=== PATIENT | female | born 1970 | race Caucasian/White ===

== ENCOUNTER 2017-11-18 09:36 | Emergency (ER) | payer OTHER ==
[~2017-11-18] VITALS: Ht 160 cm; Wt 74.8 kg
[~2017-11-18 09:36] MED LIST: ALBU90OI INH; ASACOL HD800 MG PO; BENZ100A PO; BUDE200IP INH; BUDESONIDE EC3 MG PO; COLCHICINE0.6 MG PO; Cymbalta60 MG PO; DULO60 PO; FLUSAL1005 INH; FLUSAL2505 INH; GABA100 PO; HYDR1TAB94 PO; Inderal 20 mg T20 MG PO; Inderal40 MG; LEVSOD100 PO; LEVSOD88 PO; LOPE2C PO; Mucinex600 MG PO; Norco 5-325 Ta1 EACH PO; ONDA4 PO; PRAZ1 PO; PROC10 PO; PROP10 PO; TIOT18 INH; ZESTRIL40 MG PO; Zofran Odt4 MG SL; Zofran4 MG PO
[2017-11-18 10:27] LABS: BASOPHILS ABSOLUTE AUTO 0.01 K/mm3 (0.00-0.23); BASOPHILS PERCENT AUTO 0 % (0-2); EOSINOPHILS PERCENT AUTO 0 % (0-6); Hematocrit 37.6 % (33.0-51.0); Hemoglobin 12.2 g/dL (11.5-16.0); IMMATURE GRAN ABSOLUTE AUTO 0.01 K/mm3 (0.00-0.10); IMMATURE GRAN PERCENT AUTO 0 % (0-1); LYMPHOCYTES ABSOLUTE AUTO 1.52 K/mm3 (0.84-5.20); LYMPHOCYTES PERCENT AUTO 23 % (21-46); MONOCYTES ABSOLUTE AUTO 0.42 K/mm3 (0.16-1.47); MONOCYTES PERCENT AUTO 6 % (4-13); Mean Corpuscular HGB 28.4 pg (26.0-34.0); Mean Corpuscular HGB Conc 32.4 g/dL (31.5-36.5); Mean Corpuscular Volume 87 fL (80-100); Mean Platelet Volume 10.1 fL (9.1-12.4); NEUTROPHILS ABSOLUTE AUTO 4.81 K/mm3 (1.96-9.15); NEUTROPHILS PERCENT AUTO 71 % (41-73); Platelet Count 176 K/mm3 (150-400); RDW Coefficient Variation 14.6 % (11.7-14.2); RDW Standard Deviation 46.8 fL (35.1-46.3); White Blood Cell Count 6.77 K/mm3 (4.00-11.30)
[2017-11-18 10:46] LABS: Alanine Aminotransfer (ALT/SGP 19 U/L (12-78); Albumin, Blood 3.5 g/dL (3.4-5.0); Albumin/Globulin Ratio 0.9 (0.8-1.8); Alk Phos 81 U/L (50-136); Anion Gap 7 mmol/L (6-16); Aspartate Aminotrans (AST/SGOT 12 U/L (12-37); Bilirubin, Total 0.3 mg/dL (0.1-1.0); Blood Urea Nitrogen 15 mg/dL (8-24); Bun/Creatinine Ratio 15.1 (12.0-20.0); CO2, Blood 24 mmol/L (21-32); Chloride, Blood 108 mmol/L (98-108); Creatinine, Blood 0.99 mg/dL (0.40-1.00); Globulin, Blood 3.7 g/dL (2.2-4.0); Glomerular Filtration Rate >60 (60-); Glucose, Blood 97 mg/dL (70-99); Potassium, Blood 4.4 mmol/L (3.5-5.5); Sodium, Blood 139 mmol/L (136-145); Total Protein, Blood 7.2 g/dL (6.4-8.2)
== END 2017-11-18 11:32 | disposition home or self-care (01) ==
LOC: ER 09:36
PROVIDERS: Emergency Medicine
DX: K52.9 Noninfective gastroenteritis and colitis, unspecified (principal); Z91.013 Allergy to seafood; Z88.8 Allergy status to other drugs, medicaments and biological substances; Z79.899 Other long term (current) drug therapy; Z79.891 Long term (current) use of opiate analgesic; Z87.891 Personal history of nicotine dependence; Z85.841 Personal history of malignant neoplasm of brain
CPT/HCPCS: 36415; 80053; 83690; 85025; 96361; 96374; 99283; J2405; J7030

== ENCOUNTER → 2017-11-27 | Outpatient (CLI) | payer OTHER ==
[~2017-11-27] MED LIST changes: +BUDE10.22 INH; +CHOL10002; +CYAN500 PO; +MAGOXI400 PO; +Monodox100 MG PO; +ONDA4ODT MM; +Omeprazole20 M1 PO; +PANT40 PO; +SINGULAIR; +Ventolin/Prove6.7 GM INH
[2017-11-28 12:52] LABS: Adenovirus F 40/41 Not Detected (NOT DETECT); Astrovirus Not Detected (NOT DETECT); Campylobacter Sp Not Detected (NOT DETECT); Cryptosporidium Not Detected (NOT DETECT); Cyclospora Cayetanensis Not Detected (NOT DETECT); E. Coli O157 Not Detected (NOT DETECT); Entamoeba Histolytica Not Detected (NOT DETECT); Enteroaggregative E. coli-EAEC Not Detected (NOT DETECT); Enteropathogenic E. coli-EPEC Not Detected (NOT DETECT); Enterotoxigenic E. coli-ETEC Not Detected (NOT DETECT); Giardia Lamblia Not Detected (NOT DETECT); Norovirus GI/GII Not Detected (NOT DETECT); Plesiomonas Shigelloides Not Detected (NOT DETECT); Rotavirus A Not Detected (NOT DETECT); Salmonella Sp Not Detected (NOT DETECT); Sapovirus Not Detected (NOT DETECT); Shiga Toxin-prod E. coli-STEC Not Detected (NOT DETECT); Shigella/Enteroin E. coli-EIEC Not Detected (NOT DETECT); Vibrio Cholerae Not Detected (NOT DETECT); Vibrio Sp Not Detected (NOT DETECT); Yersinia Enterocolitica Not Detected (NOT DETECT)
== END | disposition home or self-care (01) ==
LOC: LAB 09:30 → LAB FUT 11-25 16:10
PROVIDERS: Internal Medicine Gastroenterology
DX: R19.7 Diarrhea, unspecified (principal); N18.2 Chronic kidney disease, stage 2 (mild); D63.1 Anemia in chronic kidney disease; N25.81 Secondary hyperparathyroidism of renal origin; E55.9 Vitamin D deficiency, unspecified; E78.00 Pure hypercholesterolemia, unspecified; R76.9 Abnormal immunological finding in serum, unspecified; D51.8 Other vitamin B12 deficiency anemias; D52.8 Other folate deficiency anemias; D50.9 Iron deficiency anemia, unspecified
CPT/HCPCS: 87507

== ENCOUNTER 2017-12-21 12:51 | Observation (INO) | payer OTHER ==
[~2017-12-21] VITALS: Ht 160 cm; Wt 74.8 kg
[~2017-12-21 12:51] MED LIST changes: -BUDE10.22 INH; -CHOL10002; -CYAN500 PO; -MAGOXI400 PO; -Monodox100 MG PO; -ONDA4ODT MM; -Omeprazole20 M1 PO; -PANT40 PO; -SINGULAIR; -Ventolin/Prove6.7 GM INH
[2017-12-21 14:21] LABS: BASOPHILS ABSOLUTE AUTO 0.03 K/mm3 (0.00-0.23); BASOPHILS PERCENT AUTO 0 % (0-2); EOSINOPHILS PERCENT AUTO 0 % (0-6); Hematocrit 45.1 % (33.0-51.0); Hemoglobin 14.6 g/dL (11.5-16.0); IMMATURE GRAN ABSOLUTE AUTO 0.03 K/mm3 (0.00-0.10); IMMATURE GRAN PERCENT AUTO 0 % (0-1); LYMPHOCYTES PERCENT AUTO 28 % (21-46); MONOCYTES ABSOLUTE AUTO 0.57 K/mm3 (0.16-1.47); MONOCYTES PERCENT AUTO 6 % (4-13); Mean Corpuscular HGB 28.1 pg (26.0-34.0); Mean Corpuscular HGB Conc 32.4 g/dL (31.5-36.5); Mean Corpuscular Volume 87 fL (80-100); Mean Platelet Volume 10.8 fL (9.1-12.4); NEUTROPHILS ABSOLUTE AUTO 6.57 K/mm3 (1.96-9.15); NEUTROPHILS PERCENT AUTO 66 % (41-73); Platelet Count 226 K/mm3 (150-400); RDW Coefficient Variation 15.2 % (11.7-14.2); RDW Standard Deviation 47.5 fL (35.1-46.3)
[2017-12-21 14:39] LABS: Albumin, Blood 4.4 g/dL (3.4-5.0); Bilirubin, Total 0.5 mg/dL (0.1-1.0); Bun/Creatinine Ratio 21.7 (12.0-20.0); Calcium, Blood 9.7 mg/dL (8.5-10.1); Creatinine, Blood 1.06 mg/dL (0.40-1.00); Globulin, Blood 4.4 g/dL (2.2-4.0); Potassium, Blood 4.4 mmol/L (3.5-5.5); Total Protein, Blood 8.8 g/dL (6.4-8.2)
[2017-12-21 14:55] LABS: Source, Urine Clean Catch
[2017-12-21 15:04] LABS: Appearance, Urine Clear (Clear); Bilirubin, Urine Neg (Neg); Blood, Urine Neg (Neg); Color, Urine Yellow (P-Yellow); Glucose Qualitative, Urine Neg (Neg); Ketones, Urine Neg (Neg); Leukocyte Esterase, Urine Neg (Neg); Nitrite, Urine Neg (Neg); Protein, Urine Neg (Neg); Urobilinogen, Urine NORM (Normal)
[2017-12-21] MEDS ORDERED: SINGULAIR (15:17)
[2017-12-23] MEDS ORDERED: HYDR1TAB94 PO (10:02)
== END 2017-12-23 12:59 | disposition home or self-care (01) ==
LOC: ER 12:51 → SURS 12:52 → MEDS 12:52 → SURS 16:54
PROVIDERS: Emergency Medicine; Surgery
PROC: BF03YZZ Plain Radiography of Gallbladder and Bile Ducts using Other Contrast (ICD-10-PCS; 2017-12-22)
PROC: 0FT44ZZ Resection of Gallbladder, Percutaneous Endoscopic Approach (ICD-10-PCS; principal; 2017-12-22 16:00)
DX: K80.12 Calculus of gallbladder with acute and chronic cholecystitis without obstruction (principal); I10 Essential (primary) hypertension; J44.9 Chronic obstructive pulmonary disease, unspecified; G89.29 Other chronic pain; F43.10 Post-traumatic stress disorder, unspecified; I47.1 Supraventricular tachycardia; K52.831 Collagenous colitis; M19.90 Unspecified osteoarthritis, unspecified site; M79.7 Fibromyalgia; G43.909 Migraine, unspecified, not intractable, without status migrainosus; E03.9 Hypothyroidism, unspecified; Z85.42 Personal history of malignant neoplasm of other parts of uterus; Z90.710 Acquired absence of both cervix and uterus; Z90.722 Acquired absence of ovaries, bilateral; Z90.89 Acquired absence of other organs; Z98.890 Other specified postprocedural states; Z87.19 Personal history of other diseases of the digestive system; Z79.899 Other long term (current) drug therapy; Z91.013 Allergy to seafood; Z88.8 Allergy status to other drugs, medicaments and biological substances; Z87.891 Personal history of nicotine dependence
CPT/HCPCS: 36415; 74300; 80053; 81003; 83690; 84443; 85025; 88304; 93005; 93010; 94640; 94760; 96361; 96365; 96366; 96375; 96376; 99285; C1729; G0378; J1100; J1956; J2250; J2370; J2405; J2710; J3010; J7120

== ENCOUNTER → 2018-02-26 | Outpatient (CLI) | payer OTHER ==
[~2018-02-26] MED LIST changes: +SINGULAIR
== END ==
LOC: LAB SHORT 06:30 → LAB 06:30
DX: R19.7 Diarrhea, unspecified (principal)
CPT/HCPCS: 83993

== ENCOUNTER 2018-05-03 10:54 | Emergency (ER) | payer OTHER ==
[~2018-05-03] VITALS: Ht 160 cm; Wt 79.4 kg
[2018-05-03] MEDS ORDERED: Monodox100 MG PO (12:15)
== END 2018-05-03 12:20 | disposition home or self-care (01) ==
LOC: ER 10:54
DX: L03.115 Cellulitis of right lower limb (principal); Z91.030 Bee allergy status; Z91.013 Allergy to seafood; Z88.8 Allergy status to other drugs, medicaments and biological substances; Z79.899 Other long term (current) drug therapy; Z85.841 Personal history of malignant neoplasm of brain
CPT/HCPCS: 90471; 90714; 99283

== ENCOUNTER 2018-06-11 11:59 | Emergency (ER) | payer OTHER ==
[~2018-06-11] VITALS: Ht 160 cm; Wt 77.1 kg
[~2018-06-11 11:59] MED LIST changes: +Monodox100 MG PO
== END 2018-06-11 13:00 | disposition left against medical advice (07) ==
LOC: ER 11:59
DX: Z53.21 Procedure and treatment not carried out due to patient leaving prior to being seen by health care provider (principal)

== ENCOUNTER 2018-06-17 10:31 | Inpatient (IN) | payer OTHER ==
[~2018-06-17] VITALS: Ht 160 cm; Wt 77.1 kg
[2018-06-17 11:09] LABS: BASOPHILS ABSOLUTE AUTO 0.01 K/mm3 (0.00-0.23); BASOPHILS PERCENT AUTO 0 % (0-2); EOSINOPHILS ABSOLUTE AUTO 0.02 K/mm3 (0.00-0.68); EOSINOPHILS PERCENT AUTO 0 % (0-6); Hematocrit 43.5 % (33.0-51.0); Hemoglobin 14.4 g/dL (11.5-16.0); IMMATURE GRAN ABSOLUTE AUTO 0.13 K/mm3 (0.00-0.10); IMMATURE GRAN PERCENT AUTO 1 % (0-1); LYMPHOCYTES ABSOLUTE AUTO 1.78 K/mm3 (0.84-5.20); LYMPHOCYTES PERCENT AUTO 16 % (21-46); MONOCYTES ABSOLUTE AUTO 0.66 K/mm3 (0.16-1.47); MONOCYTES PERCENT AUTO 6 % (4-13); Mean Corpuscular HGB 29.9 pg (26.0-34.0); Mean Corpuscular HGB Conc 33.1 g/dL (31.5-36.5); Mean Corpuscular Volume 90 fL (80-100); Mean Platelet Volume 10.3 fL (9.1-12.4); NEUTROPHILS ABSOLUTE AUTO 8.53 K/mm3 (1.96-9.15); NEUTROPHILS PERCENT AUTO 77 % (41-73); Platelet Count 244 K/mm3 (150-400); RDW Coefficient Variation 17.8 % (11.7-14.2); RDW Standard Deviation 58.4 fL (35.1-46.3); Red Blood Cell Count 4.82 M/mm3 (3.80-5.20); White Blood Cell Count 11.13 K/mm3 (4.00-11.30)
[2018-06-17] MEDS ORDERED: ONDA4ODT MM (11:21)
[2018-06-17] MEDS ORDERED: MAGOXI400 PO (11:21)
[2018-06-17] MEDS ORDERED: Ventolin/Prove6.7 GM INH (11:22)
[2018-06-17] MEDS ORDERED: PANT40 PO (11:22)
[2018-06-17] MEDS ORDERED: CHOL10002 (11:22)
[2018-06-17] MEDS ORDERED: CYAN500 PO (11:22)
[2018-06-17] MEDS ORDERED: Omeprazole20 M1 PO (11:23)
[2018-06-17 11:28] LABS: Base Excess Venous -7.6 mmol/L; Bicarbonate Venous 17.6 mmol/L (24.0-30.0); PCO2 Venous 43.8 mmHg (38-42); PO2 Venous 32.4 mmHg (38-42); pH Blood Venous 7.26 (7.34-7.37)
[2018-06-17 11:30] LABS: Magnesium, Blood 2.6 mg/dL (1.6-2.4)
[2018-06-17 11:35] LABS: Thyroid Stimulating Hormone 2.26 uIU/mL (0.360-4.800)
[2018-06-17 11:44] LABS: Adenovirus F 40/41 Not Detected (NOT DETECT); Astrovirus Not Detected (NOT DETECT); Campylobacter Sp Not Detected (NOT DETECT); Cryptosporidium Not Detected (NOT DETECT); Cyclospora Cayetanensis Not Detected (NOT DETECT); E. Coli O157 Not Detected (NOT DETECT); Entamoeba Histolytica Not Detected (NOT DETECT); Enteroaggregative E. coli-EAEC Not Detected (NOT DETECT); Enterotoxigenic E. coli-ETEC Not Detected (NOT DETECT); Giardia Lamblia Not Detected (NOT DETECT); Norovirus GI/GII Not Detected (NOT DETECT); Plesiomonas Shigelloides Not Detected (NOT DETECT); Rotavirus A Not Detected (NOT DETECT); Salmonella Sp Not Detected (NOT DETECT); Sapovirus Not Detected (NOT DETECT); Shiga Toxin-prod E. coli-STEC Not Detected (NOT DETECT); Shigella/Enteroin E. coli-EIEC Not Detected (NOT DETECT); Vibrio Cholerae Not Detected (NOT DETECT); Vibrio Sp Not Detected (NOT DETECT); Yersinia Enterocolitica Not Detected (NOT DETECT)
[2018-06-17 11:47] LABS: Albumin, Blood 4.1 g/dL (3.4-5.0); Albumin/Globulin Ratio 0.9 (0.8-1.8); Bilirubin, Total 0.5 mg/dL (0.1-1.0); Bun/Creatinine Ratio 6.8 (12.0-20.0); Calcium, Blood 8.4 mg/dL (8.5-10.1); Globulin, Blood 4.5 g/dL (2.2-4.0); Phosphorus, Blood 8.4 mg/dL (2.5-4.9); Potassium, Blood 3.7 mmol/L (3.5-5.5); Total Protein, Blood 8.6 g/dL (6.4-8.2)
[2018-06-17 12:24] LABS: U Amphetamine Screen Not Detected
[2018-06-17 12:25] LABS: U Barbituate Screen Not Detected; U Benzodiazapine Screen Not Detected; U Buprenorphine Screen Not Detected; U Cannabinoids Screen DETECTED; U Cocaine Screen Not Detected; U Methadone Screen Not Detected; U Methamphetamine Screen Not Detected; U Opiates Screen Not Detected; U Oxycodone Screen Not Detected; U Phencyclidine Screen Not Detected; U Propoxyphene Screen Not Detected
[2018-06-17 13:22] LABS: Enteropathogenic E. coli-EPEC Detected (NOT DETECT)
[2018-06-17 15:15] LABS: Source, Urine Clean Catch
[2018-06-17] MEDS ORDERED: BUDE10.22 INH (15:16)
[2018-06-17 15:18] LABS: Appearance, Urine Hazy (Clear); Blood, Urine 2+ (Neg); Color, Urine Yellow (P-Yellow); Glucose Qualitative, Urine Neg (Neg); Ketones, Urine Neg (Neg); Leukocyte Esterase, Urine 1+ (Neg); Nitrite, Urine Neg (Neg); Protein, Urine 3+ (Neg); Specific Gravity, Urine 1.015 (1.003-1.022); Urobilinogen, Urine NORM (Normal)
[2018-06-17 15:40] LABS: Bun/Creatinine Ratio 7.2 (12.0-20.0); Calcium, Blood 8.5 mg/dL (8.5-10.1); Creatinine, Blood 9.23 mg/dL (0.40-1.00); Potassium, Blood 3.7 mmol/L (3.5-5.5)
[2018-06-17 15:45] LABS: Bilirubin, Urine 1+ (Neg)
[2018-06-17 15:47] LABS: Mucus Mod (0-Heavy)
[2018-06-17 15:48] LABS: Bacteria Many /hpf; Squamous Epithelial Cells Mod /hpf (Few)
[2018-06-17 15:50] LABS: Yeast/Fungi Urine Few /hpf
[2018-06-18 05:32] LABS: Hematocrit 33.9 % (33.0-51.0); Hemoglobin 11.1 g/dL (11.5-16.0)
[2018-06-18 06:02] LABS: Magnesium, Blood 2.2 mg/dL (1.6-2.4)
[2018-06-18 06:06] LABS: Albumin, Blood 3.2 g/dL (3.4-5.0); Anion Gap 9 mmol/L (6-16); Blood Urea Nitrogen 55 mg/dL (8-24); Bun/Creatinine Ratio 10.1 (12.0-20.0); CO2, Blood 20 mmol/L (21-32); Calcium, Blood 8.1 mg/dL (8.5-10.1); Chloride, Blood 107 mmol/L (98-108); Creatinine, Blood 5.47 mg/dL (0.40-1.00); Glomerular Filtration Rate 9 (60-); Glucose, Blood 98 mg/dL (70-99); Potassium, Blood 3.4 mmol/L (3.5-5.5); Sodium, Blood 136 mmol/L (136-145)
[2018-06-18 06:07] LABS: Phosphorus, Blood 3.8 mg/dL (2.5-4.9)
[2018-06-18 09:28] LABS: Uric Acid, Blood 15.9 mg/dL (2.6-6.0)
[2018-06-19 04:53] LABS: BASOPHILS ABSOLUTE AUTO 0.02 K/mm3 (0.00-0.23); BASOPHILS PERCENT AUTO 0 % (0-2); EOSINOPHILS ABSOLUTE AUTO 0.01 K/mm3 (0.00-0.68); EOSINOPHILS PERCENT AUTO 0 % (0-6); Hematocrit 36.2 % (33.0-51.0); Hemoglobin 11.5 g/dL (11.5-16.0); IMMATURE GRAN ABSOLUTE AUTO 0.06 K/mm3 (0.00-0.10); IMMATURE GRAN PERCENT AUTO 1 % (0-1); LYMPHOCYTES PERCENT AUTO 33 % (21-46); MONOCYTES ABSOLUTE AUTO 0.42 K/mm3 (0.16-1.47); MONOCYTES PERCENT AUTO 6 % (4-13); Mean Corpuscular HGB 29.3 pg (26.0-34.0); Mean Corpuscular HGB Conc 31.8 g/dL (31.5-36.5); Mean Corpuscular Volume 92 fL (80-100); Mean Platelet Volume 10.1 fL (9.1-12.4); NEUTROPHILS PERCENT AUTO 60 % (41-73); Platelet Count 198 K/mm3 (150-400); RDW Coefficient Variation 17.7 % (11.7-14.2); Red Blood Cell Count 3.92 M/mm3 (3.80-5.20); White Blood Cell Count 6.71 K/mm3 (4.00-11.30)
[2018-06-19 05:12] LABS: Magnesium, Blood 1.9 mg/dL (1.6-2.4)
[2018-06-19 05:13] LABS: Alanine Aminotransfer (ALT/SGP 20 U/L (12-78); Albumin, Blood 3.3 g/dL (3.4-5.0); Albumin/Globulin Ratio 0.9 (0.8-1.8); Alk Phos 116 U/L (50-136); Anion Gap 8 mmol/L (6-16); Aspartate Aminotrans (AST/SGOT 17 U/L (12-37); Bilirubin, Total 0.2 mg/dL (0.1-1.0); Blood Urea Nitrogen 32 mg/dL (8-24); Bun/Creatinine Ratio 17.6 (12.0-20.0); CO2, Blood 22 mmol/L (21-32); Calcium, Blood 8.3 mg/dL (8.5-10.1); Chloride, Blood 114 mmol/L (98-108); Creatinine, Blood 1.82 mg/dL (0.40-1.00); Globulin, Blood 3.8 g/dL (2.2-4.0); Glomerular Filtration Rate 32 (60-); Glucose, Blood 88 mg/dL (70-99); Phosphorus, Blood 2.5 mg/dL (2.5-4.9); Potassium, Blood 3.8 mmol/L (3.5-5.5); Sodium, Blood 144 mmol/L (136-145); Total Protein, Blood 7.1 g/dL (6.4-8.2)
== END 2018-06-19 12:15 | disposition home or self-care (01) | DRG 683 ==
LOC: ER 10:31 → MEDS 11:56 → ENPENDDIS 06-19 11:30 → MEDS 06-19 12:15
PROVIDERS: Emergency Medicine; Internal Medicine; Internal Medicine Nephrology
PROC: 3E0234Z Introduction of Serum, Toxoid and Vaccine into Muscle, Percutaneous Approach (ICD-10-PCS; principal; 2018-06-17)
DX: N17.9 Acute kidney failure, unspecified (principal); E87.2 Acidosis; E03.9 Hypothyroidism, unspecified; K52.831 Collagenous colitis; I12.9 Hypertensive chronic kidney disease with stage 1 through stage 4 chronic kidney disease, or unspecified chronic kidney disease; N18.2 Chronic kidney disease, stage 2 (mild); E86.9 Volume depletion, unspecified; E87.6 Hypokalemia; D63.1 Anemia in chronic kidney disease; E88.09 Other disorders of plasma-protein metabolism, not elsewhere classified; J44.9 Chronic obstructive pulmonary disease, unspecified; Z23 Encounter for immunization; Z91.038 Other insect allergy status; Z91.013 Allergy to seafood; Z91.048 Other nonmedicinal substance allergy status; Z87.891 Personal history of nicotine dependence; Z79.899 Other long term (current) drug therapy
CPT/HCPCS: 36415; 36416; 71045; 76770; 80048; 80053; 80069; 81001; 82550; 82803; 83735; 84100; 84443; 84550; 85014; 85018; 85025; 87086; 87507; 90686; 93005; 93010; 94640; 94760; 96360; 97161; 99285-25; G8978; G8979; G8980; J2405; J7030; J7120

== ENCOUNTER 2018-11-25 07:17 | Inpatient (IN) | payer OTHER ==
[~2018-11-25] VITALS: Ht 160 cm; Wt 85.1 kg
[~2018-11-25 07:17] MED LIST changes: +BUDE10.22 INH; +CHOL10002; +CYAN500 PO; +MAGOXI400 PO; +ONDA4ODT MM; +Omeprazole20 M1 PO; +PANT40 PO; +Ventolin/Prove6.7 GM INH
[2018-11-25 08:17] LABS: BASOPHILS ABSOLUTE AUTO 0.08 K/mm3 (0.00-0.23); BASOPHILS PERCENT AUTO 0 % (0-2); EOSINOPHILS ABSOLUTE AUTO 0.02 K/mm3 (0.00-0.68); EOSINOPHILS PERCENT AUTO 0 % (0-6); Hematocrit 48.1 % (33.0-51.0); Hemoglobin 15.2 g/dL (11.5-16.0); IMMATURE GRAN ABSOLUTE AUTO 0.31 K/mm3 (0.00-0.10); IMMATURE GRAN PERCENT AUTO 1 % (0-1); LYMPHOCYTES PERCENT AUTO 16 % (21-46); MONOCYTES ABSOLUTE AUTO 1.15 K/mm3 (0.16-1.47); MONOCYTES PERCENT AUTO 5 % (4-13); Mean Corpuscular HGB 30.5 pg (26.0-34.0); Mean Corpuscular HGB Conc 31.6 g/dL (31.5-36.5); Mean Corpuscular Volume 96 fL (80-100); Mean Platelet Volume 10.1 fL (9.1-12.4); NEUTROPHILS ABSOLUTE AUTO 18.38 K/mm3 (1.96-9.15); NEUTROPHILS PERCENT AUTO 78 % (41-73); Platelet Count 286 K/mm3 (150-400); RDW Coefficient Variation 16.5 % (11.7-14.2); RDW Standard Deviation 58.4 fL (35.1-46.3); Red Blood Cell Count 4.99 M/mm3 (3.80-5.20); White Blood Cell Count 23.74 K/mm3 (4.00-11.30)
[2018-11-25] MEDS ORDERED: BENZ100A PO (08:17)
[2018-11-25 08:30] LABS: Alanine Aminotransfer (ALT/SGP 25 U/L (12-78); Albumin, Blood 4.1 g/dL (3.4-5.0); Albumin/Globulin Ratio 1.1 (0.8-1.8); Alk Phos 104 U/L (50-136); Anion Gap 10 mmol/L (6-16); Aspartate Aminotrans (AST/SGOT 12 U/L (12-37); Bilirubin, Total 0.3 mg/dL (0.1-1.0); Blood Urea Nitrogen 25 mg/dL (8-24); Bun/Creatinine Ratio 21.6 (12.0-20.0); CO2, Blood 23 mmol/L (21-32); Calcium, Blood 8.9 mg/dL (8.5-10.1); Chloride, Blood 109 mmol/L (98-108); Creatinine, Blood 1.16 mg/dL (0.40-1.00); Ethanol (Alcohol), Blood, Med <3 mg/dL; Globulin, Blood 3.9 g/dL (2.2-4.0); Glomerular Filtration Rate 53 (60-); Glucose, Blood 115 mg/dL (70-99); Potassium, Blood 3.7 mmol/L (3.5-5.5); Sodium, Blood 142 mmol/L (136-145)
[2018-11-25 10:04] LABS: Adenovirus F 40/41 Not Detected (NOT DETECT); Astrovirus Not Detected (NOT DETECT); Campylobacter Sp Not Detected (NOT DETECT); Cryptosporidium Not Detected (NOT DETECT); Cyclospora Cayetanensis Not Detected (NOT DETECT); E. Coli O157 Not Detected (NOT DETECT); Entamoeba Histolytica Not Detected (NOT DETECT); Enteroaggregative E. coli-EAEC Not Detected (NOT DETECT); Enteropathogenic E. coli-EPEC Not Detected (NOT DETECT); Enterotoxigenic E. coli-ETEC Not Detected (NOT DETECT); Giardia Lamblia Not Detected (NOT DETECT); Norovirus GI/GII Not Detected (NOT DETECT); Plesiomonas Shigelloides Not Detected (NOT DETECT); Rotavirus A Not Detected (NOT DETECT); Salmonella Sp Not Detected (NOT DETECT); Sapovirus Not Detected (NOT DETECT); Shiga Toxin-prod E. coli-STEC Not Detected (NOT DETECT); Shigella/Enteroin E. coli-EIEC Not Detected (NOT DETECT); Vibrio Cholerae Not Detected (NOT DETECT); Vibrio Sp Not Detected (NOT DETECT); Yersinia Enterocolitica Not Detected (NOT DETECT)
[2018-11-25 10:11] LABS: International Normalized Ratio 0.94
[2018-11-25] MEDS ORDERED: Cymbalta20 MG PO (12:35)
[2018-11-25] MEDS ORDERED: LISI20 PO (12:37)
--- NOTE | 2018-11-25 15:03 | NUR ---
PT ADMITTED. PT IN STABLE CONDITION WITH VSS. PT ORIENTED TO ROOM. CALL LIGHT IN REACH.
[2018-11-25 16:45] LABS: U Amphetamine Screen Not Detected; U Barbituate Screen Not Detected; U Benzodiazapine Screen Not Detected; U Cocaine Screen Not Detected; U Methamphetamine Screen Not Detected
[2018-11-25 16:46] LABS: U Buprenorphine Screen Not Detected; U Cannabinoids Screen DETECTED; U Methadone Screen Not Detected; U Opiates Screen DETECTED; U Oxycodone Screen Not Detected; U Phencyclidine Screen Not Detected; U Propoxyphene Screen Not Detected
--- NOTE | 2018-11-25 16:52 | NUR ---
SHIFT SUMMARY NO CHANGES IN ASSESSMENT AT THIS TIME. VSS. PT RESTING IN BED AT THIS TIME. PT IND IN ROOM. PT STATES SHE HAS STRESS INCONTINENCE BOTH BOWEL & BLADDER. PT RECIEVING D5W/NS KCL 20 MEQ AT 100ML/HR. WILL CONTINUE TO MONITOR UNTIL TURNOVER IS COMPLETE.
--- NOTE | 2018-11-25 21:56 | NUR ---
ASSUMED CARE OF PT D/T PRIOR RN HAS NO COMPUTER ACCESS.
--- NOTE | 2018-11-26 03:33 | NUR ---
SHIFT SUMMARY: PT RESTED WELL T/O SHIFT. NO COMPLAINTS OF PAIN OR NAUSEA. IV FLUIDS INFUSING. NO ACUTE CHANGES. WILL CONTINUE TO MONITOR AND PROVIDE CARE UNTIL SHIFT REPORT.
[2018-11-26 05:13] LABS: Hematocrit 37.6 % (33.0-51.0); Hemoglobin 11.8 g/dL (11.5-16.0); Mean Corpuscular HGB 30.3 pg (26.0-34.0); Mean Corpuscular HGB Conc 31.4 g/dL (31.5-36.5); Mean Corpuscular Volume 96 fL (80-100); Mean Platelet Volume 9.7 fL (9.1-12.4); Platelet Count 185 K/mm3 (150-400); RDW Coefficient Variation 16.3 % (11.7-14.2); RDW Standard Deviation 58.2 fL (35.1-46.3); White Blood Cell Count 7.78 K/mm3 (4.00-11.30)
[2018-11-26 05:47] LABS: Anion Gap 8 mmol/L (6-16); Blood Urea Nitrogen 14 mg/dL (8-24); Bun/Creatinine Ratio 13.9 (12.0-20.0); CO2, Blood 23 mmol/L (21-32); Calcium, Blood 8.1 mg/dL (8.5-10.1); Chloride, Blood 109 mmol/L (98-108); Creatinine, Blood 1.01 mg/dL (0.40-1.00); Glomerular Filtration Rate >60 (60-); Glucose, Blood 103 mg/dL (70-99); Potassium, Blood 3.9 mmol/L (3.5-5.5); Sodium, Blood 140 mmol/L (136-145)
--- NOTE | 2018-11-26 16:45 | NUR ---
SHIFT SUMMARY NO CHANGES IN ASSESSMENT AT THIS TIME. VSS. PT IND IN ROOM & TO BATHROOM. PT TOLERATED CLEAR LIQUID THIS MORNING & ADVANCED TO FULL LIQUID FOR THIS AFTERNOON. PT HAS DENIED NEED FOR PAIN MEDICATION TODAY. PT A&OX4. PT LIKELY TO DC TOMORROW PER DR. CAMARILLO. PT AWARE OF PLAN FOR STAYING TONIGHT. WILL CONTINUE TO MONITOR UNTIL TURNOVER IS COMPLETE.
--- NOTE | 2018-11-27 07:33 | NUR ---
0030: spoke to Dr Wily Ragsdale rounding on patients. who said that he would be changing the patients diet to Regular diet and for me to get her something to eat. I brought the patient a sandwich, and a glass of milk.
[2018-11-27] MEDS ORDERED: TYLENOL325 MG PO (09:27)
[2018-11-27] MEDS ORDERED: METR500 PO (09:27)
[2018-11-27] MEDS ORDERED: CULTURELLE1 EACH PO (09:28)
[2018-11-27] MEDS ORDERED: LEVO750 PO (09:28)
--- NOTE | 2018-11-27 13:37 | NUR ---
DISCHARGE NOTE PT DISCHARGED TO HOME. PT LEFT ROOM WITH STEADY GAIT AND SENIOR SOFTWARE ARCHITECT ESCORT. PT EDUCATED ON NEW MEDICATIONS AND INSTRUCTED TO FOLLOW UP WITH PCP AND TO WELDING LEAD BURNER MEDS FROM PHARMACY. IV DC'D AND BELONGINGS RETURNED.
== END 2018-11-27 12:53 | disposition home or self-care (01) | DRG 872 ==
LOC: ER 07:17 → MEDS 12:39 → ENPENDDIS 11-27 09:19 → MEDS 11-27 12:53
PROVIDERS: Physician Assistant; ADMIT Hospitalist
DX: A41.9 Sepsis, unspecified organism (principal); C72.9 Malignant neoplasm of central nervous system, unspecified; K52.831 Collagenous colitis; E86.0 Dehydration; J44.9 Chronic obstructive pulmonary disease, unspecified; F43.10 Post-traumatic stress disorder, unspecified; Z85.42 Personal history of malignant neoplasm of other parts of uterus; Z85.850 Personal history of malignant neoplasm of thyroid; I12.9 Hypertensive chronic kidney disease with stage 1 through stage 4 chronic kidney disease, or unspecified chronic kidney disease; N18.3 Chronic kidney disease, stage 3 (moderate); E89.0 Postprocedural hypothyroidism; F32.9 Major depressive disorder, single episode, unspecified; F17.210 Nicotine dependence, cigarettes, uncomplicated; K21.9 Gastro-esophageal reflux disease without esophagitis
CPT/HCPCS: 36415; 70450; 74176; 80048; 80053; 82947; 83605; 83690; 85025; 85027; 85610; 87040; 87507; 90686; 93005; 93010; 94640; 94760; 96361; 96365; 96366; 96375; 99285-25; G0480; J0744; J1170; J1650; J1956; J2405; J2550; J7030; J7050

== ENCOUNTER → 2019-02-09 | Outpatient (CLI) | payer OTHER ==
[~2019-02-09] MED LIST changes: +CULTURELLE1 EACH PO; +Cymbalta20 MG PO; +LEVO750 PO; +LISI20 PO; +METR500 PO; +TYLENOL325 MG PO
[2019-02-09 20:36] LABS: Albumin, Blood 3.9 g/dL (3.4-5.0); Anion Gap 9 mmol/L (6-16); Blood Urea Nitrogen 13 mg/dL (8-24); Bun/Creatinine Ratio 14.6 (12.0-20.0); CO2, Blood 26 mmol/L (21-32); Calcium, Blood 8.9 mg/dL (8.5-10.1); Chloride, Blood 105 mmol/L (98-108); Creatinine, Blood 0.89 mg/dL (0.40-1.00); Glomerular Filtration Rate >60 (60-); Glucose, Blood 108 mg/dL (70-99); Phosphorus, Blood 3.7 mg/dL (2.5-4.9); Potassium, Blood 4.2 mmol/L (3.5-5.5); Sodium, Blood 140 mmol/L (136-145)
== END | disposition home or self-care (01) ==
LOC: LAB 19:47 → LAB SHORT 19:47
PROVIDERS: Internal Medicine Nephrology
DX: N18.2 Chronic kidney disease, stage 2 (mild) (principal); D63.1 Anemia in chronic kidney disease
CPT/HCPCS: 80069

== ENCOUNTER → 2019-03-22 | Outpatient (CLI) | payer OTHER ==
[2019-03-22 19:05] LABS: Adenovirus F 40/41 Not Detected (NOT DETECT); Astrovirus Not Detected (NOT DETECT); Campylobacter Sp Not Detected (NOT DETECT); Cryptosporidium Not Detected (NOT DETECT); Cyclospora Cayetanensis Not Detected (NOT DETECT); E. Coli O157 Not Detected (NOT DETECT); Entamoeba Histolytica Not Detected (NOT DETECT); Enteroaggregative E. coli-EAEC Not Detected (NOT DETECT); Enteropathogenic E. coli-EPEC Not Detected (NOT DETECT); Enterotoxigenic E. coli-ETEC Not Detected (NOT DETECT); Giardia Lamblia Not Detected (NOT DETECT); Norovirus GI/GII Not Detected (NOT DETECT); Plesiomonas Shigelloides Not Detected (NOT DETECT); Rotavirus A Not Detected (NOT DETECT); Salmonella Sp Not Detected (NOT DETECT); Sapovirus Not Detected (NOT DETECT); Shiga Toxin-prod E. coli-STEC Not Detected (NOT DETECT); Shigella/Enteroin E. coli-EIEC Not Detected (NOT DETECT); Vibrio Cholerae Not Detected (NOT DETECT); Vibrio Sp Not Detected (NOT DETECT); Yersinia Enterocolitica Not Detected (NOT DETECT)
== END | disposition home or self-care (01) ==
LOC: LAB 13:51 → LAB SHORT 13:51 → LAB FUT 03-16 10:55
PROVIDERS: Internal Medicine Hematology & Oncology
DX: R19.7 Diarrhea, unspecified (principal)
CPT/HCPCS: 87324; 87507

== ENCOUNTER → 2019-04-19 | Outpatient (CLI) | payer OTHER ==
[2019-04-20 14:15] LABS: Adenovirus F 40/41 Not Detected (NOT DETECT); Astrovirus Not Detected (NOT DETECT); Campylobacter Sp Not Detected (NOT DETECT); Cryptosporidium Not Detected (NOT DETECT); Cyclospora Cayetanensis Not Detected (NOT DETECT); E. Coli O157 Not Detected (NOT DETECT); Entamoeba Histolytica Not Detected (NOT DETECT); Enteroaggregative E. coli-EAEC Not Detected (NOT DETECT); Enteropathogenic E. coli-EPEC Not Detected (NOT DETECT); Enterotoxigenic E. coli-ETEC Not Detected (NOT DETECT); Giardia Lamblia Not Detected (NOT DETECT); Norovirus GI/GII Not Detected (NOT DETECT); Plesiomonas Shigelloides Not Detected (NOT DETECT); Rotavirus A Not Detected (NOT DETECT); Salmonella Sp Not Detected (NOT DETECT); Sapovirus Not Detected (NOT DETECT); Shiga Toxin-prod E. coli-STEC Not Detected (NOT DETECT); Shigella/Enteroin E. coli-EIEC Not Detected (NOT DETECT); Vibrio Cholerae Not Detected (NOT DETECT); Vibrio Sp Not Detected (NOT DETECT); Yersinia Enterocolitica Not Detected (NOT DETECT)
== END | disposition home or self-care (01) ==
LOC: LAB 08:43 → LAB SHORT 08:43 → LAB FUT 04-19 10:20
PROVIDERS: Internal Medicine Gastroenterology
DX: D50.0 Iron deficiency anemia secondary to blood loss (chronic) (principal); E87.8 Other disorders of electrolyte and fluid balance, not elsewhere classified; R19.7 Diarrhea, unspecified
CPT/HCPCS: 0097U

== ENCOUNTER → 2020-01-07 | Outpatient (CLI) | payer OTHER ==
[2020-01-07 17:59] LABS: Adenovirus F 40/41 Not Detected (NOT DETECT); Astrovirus Not Detected (NOT DETECT); Campylobacter Sp Not Detected (NOT DETECT); Cryptosporidium Not Detected (NOT DETECT); Cyclospora Cayetanensis Not Detected (NOT DETECT); E. Coli O157 Not Detected (NOT DETECT); Entamoeba Histolytica Not Detected (NOT DETECT); Enteroaggregative E. coli-EAEC Not Detected (NOT DETECT); Enteropathogenic E. coli-EPEC Not Detected (NOT DETECT); Enterotoxigenic E. coli-ETEC Not Detected (NOT DETECT); Giardia Lamblia Not Detected (NOT DETECT); Norovirus GI/GII Not Detected (NOT DETECT); Plesiomonas Shigelloides Not Detected (NOT DETECT); Rotavirus A Not Detected (NOT DETECT); Salmonella Sp Not Detected (NOT DETECT); Sapovirus Not Detected (NOT DETECT); Shiga Toxin-prod E. coli-STEC Not Detected (NOT DETECT); Shigella/Enteroin E. coli-EIEC Not Detected (NOT DETECT); Vibrio Cholerae Not Detected (NOT DETECT); Vibrio Sp Not Detected (NOT DETECT); Yersinia Enterocolitica Not Detected (NOT DETECT)
== END | disposition home or self-care (01) ==
LOC: LAB SHORT 12:29 → OLS 12:29 → LAB FUT 01-05 08:00
PROVIDERS: Internal Medicine Gastroenterology
DX: D50.0 Iron deficiency anemia secondary to blood loss (chronic) (principal); R19.7 Diarrhea, unspecified
CPT/HCPCS: 0097U

== ENCOUNTER → 2020-03-15 | Outpatient (CLI) | payer OTHER ==
[2020-03-15 19:46] LABS: BASOPHILS ABSOLUTE AUTO 0.03 K/mm3 (0.00-0.23); BASOPHILS PERCENT AUTO 0 % (0-2); EOSINOPHILS ABSOLUTE AUTO 0.01 K/mm3 (0.00-0.68); EOSINOPHILS PERCENT AUTO 0 % (0-6); IMMATURE GRAN ABSOLUTE AUTO 0.09 K/mm3 (0.00-0.10); IMMATURE GRAN PERCENT AUTO 1 % (0-1); LYMPHOCYTES ABSOLUTE AUTO 2.47 K/mm3 (0.84-5.20); LYMPHOCYTES PERCENT AUTO 24 % (21-46); MONOCYTES ABSOLUTE AUTO 0.59 K/mm3 (0.16-1.47); MONOCYTES PERCENT AUTO 6 % (4-13); Mean Corpuscular HGB 33.1 pg (26.0-34.0); Mean Corpuscular HGB Conc 33.3 g/dL (31.5-36.5); Mean Corpuscular Volume 99 fL (80-100); Mean Platelet Volume 10.5 fL (9.1-12.4); NEUTROPHILS ABSOLUTE AUTO 7.14 K/mm3 (1.96-9.15); NEUTROPHILS PERCENT AUTO 69 % (41-73); Platelet Count 262 K/mm3 (150-400); RDW Coefficient Variation 17.6 % (11.7-14.2); RDW Standard Deviation 64.5 fL (35.1-46.3); Red Blood Cell Count 3.93 M/mm3 (3.80-5.20); White Blood Cell Count 10.33 K/mm3 (4.00-11.30)
[2020-03-15 20:02] LABS: C-REACTIVE PROTEIN, EXT RANGE 1.14 mg/dL (0.000-0.300)
[2020-03-15 20:08] LABS: Albumin, Blood 4.1 g/dL (3.4-5.0); Bilirubin, Total 0.5 mg/dL (0.1-1.0); Bun/Creatinine Ratio 14.2 (12.0-20.0); Calcium, Blood 9.2 mg/dL (8.5-10.1); Creatinine, Blood 1.06 mg/dL (0.40-1.00); Globulin, Blood 4.3 g/dL (2.2-4.0); Potassium, Blood 4.2 mmol/L (3.5-5.5); Total Protein, Blood 8.4 g/dL (6.4-8.2)
== END | disposition home or self-care (01) ==
LOC: LAB 19:29 → LAB SHORT 19:29
PROVIDERS: Nurse Practitioner Family
DX: R10.12 Left upper quadrant pain (principal)
CPT/HCPCS: 80053; 83690; 85025; 85651; 86140

== ENCOUNTER → 2021-01-03 | Outpatient (CLI) | payer OTHER | END | disposition home or self-care (01) | LOC: LAB SHORT 15:16 | DX: R31.9 Hematuria, unspecified (principal) | CPT/HCPCS: 87086 ==

== ENCOUNTER 2023-02-09 10:40 | Emergency (ER) | payer MEDICARE, OTHER ==
[~2023-02-09] VITALS: Ht 162.6 cm; Wt 86.2 kg
[2023-02-09 10:53] VITALS: BP 127/73
== END 2023-02-09 13:25 | disposition home or self-care (01) ==
LOC: ER 10:40
DX: K62.3 Rectal prolapse (principal); I10 Essential (primary) hypertension; J44.9 Chronic obstructive pulmonary disease, unspecified; E11.9 Type 2 diabetes mellitus without complications; Z88.8 Allergy status to other drugs, medicaments and biological substances; Z91.030 Bee allergy status; Z91.013 Allergy to seafood; Z79.899 Other long term (current) drug therapy
CPT/HCPCS: 99283

== ENCOUNTER 2023-02-23 12:51 | Emergency (ER) | payer MEDICARE, OTHER ==
[~2023-02-23] VITALS: Ht 162.6 cm; Wt 81.7 kg
[2023-02-23 14:22] LABS: Hemoglobin 8.7 g/dL (11.5-16.0); Mean Corpuscular HGB 28.8 pg (26.0-34.0); Mean Corpuscular HGB Conc 32.2 g/dL (31.5-36.5); Mean Corpuscular Volume 89 fL (80-100); Mean Platelet Volume 9.7 fL (9.1-12.4); Platelet Count 405 K/mm3 (150-400); RDW Coefficient Variation 16.1 % (11.7-14.2); RDW Standard Deviation 53.2 fL (35.1-46.3); Red Blood Cell Count 3.02 M/mm3 (3.80-5.20); White Blood Cell Count 13.04 K/mm3 (4.00-11.30)
[2023-02-23 14:40] LABS: Albumin, Blood 3.6 g/dL (3.4-5.0); Bilirubin, Total 0.3 mg/dL (0.1-1.0); Bun/Creatinine Ratio 16.6 (12.0-20.0); Creatinine, Blood 1.45 mg/dL (0.40-1.00); Globulin, Blood 3.5 g/dL (2.2-4.0); Potassium, Blood 3.9 mmol/L (3.5-5.5); Total Protein, Blood 7.1 g/dL (6.4-8.2)
[2023-02-23 14:49] LABS: BASOPHILS PERCENT MAN 0 % (0-2); EOSINOPHILS ABSOLUTE MAN 0.39 K/mm3 (0.00-0.68); EOSINOPHILS PERCENT MAN 3 % (0-6); LYMPHOCYTES % ATYPICAL MANUAL 2 % (0-0); LYMPHOCYTES PERCENT MAN 31 % (21-46); MONOCYTES ABSOLUTE MAN 0.52 K/mm3 (0.16-1.47); MONOCYTES PERCENT MAN 4 % (4-13); NEUTROPHILS ABSOLUTE MAN 7.82 K/mm3 (1.96-9.15); SEG NEUTROPHILS PERCENT MAN 60 % (41-73); TOTAL CELLS COUNTED 100
[2023-02-23] MEDS ORDERED: ALLOPURINOL100 M1 PO (16:03)
[2023-02-23] MEDS ORDERED: PRAM.5 (16:04)
[2023-02-23] MEDS ORDERED: LIPITOR80 MG (16:04)
[2023-02-23] MEDS ORDERED: METFORMIN HCL500 M2 (16:05)
[2023-02-23] MEDS ORDERED: MONT10T PO (16:06)
[2023-02-23 17:06] LABS: International Normalized Ratio 1.01; Prothrombin Time Results 10.6 Sec (9.7-11.5)
[2023-02-23 18:45] VITALS: BP 127/75
[2023-02-23 19:09] LABS: Source, Urine Clean Catch
[2023-02-23 19:11] LABS: Appearance, Urine Hazy (Clear); Bilirubin, Urine Neg (Neg); Blood, Urine 5+ (Neg); Color, Urine Yellow (P-Yellow); Glucose Qualitative, Urine Neg (Neg); Ketones, Urine Neg (Neg); Leukocyte Esterase, Urine 1+ (Neg); Nitrite, Urine Neg (Neg); Protein, Urine 2+ (Neg); Specific Gravity, Urine 1.005 (1.003-1.022); Urobilinogen, Urine NORM (Normal)
[2023-02-23 19:22] LABS: Bacteria Mod /hpf; Squamous Epithelial Cells Rare /hpf (Few)
[2023-02-23 19:23] LABS: Red Blood Cells, Urine 50-100 /hpf (0-2)
== END 2023-02-23 21:32 | disposition left against medical advice (07) ==
LOC: ER 12:51
PROVIDERS: Student in an Organized Health Care Education/Training Program
DX: K92.2 Gastrointestinal hemorrhage, unspecified (principal); I95.9 Hypotension, unspecified; R55 Syncope and collapse; K64.4 Residual hemorrhoidal skin tags; Z53.29 Procedure and treatment not carried out because of patient's decision for other reasons; J44.9 Chronic obstructive pulmonary disease, unspecified; I12.9 Hypertensive chronic kidney disease with stage 1 through stage 4 chronic kidney disease, or unspecified chronic kidney disease; E11.22 Type 2 diabetes mellitus with diabetic chronic kidney disease; N18.9 Chronic kidney disease, unspecified; Z85.841 Personal history of malignant neoplasm of brain; Z91.030 Bee allergy status; Z91.013 Allergy to seafood; Z91.048 Other nonmedicinal substance allergy status; Z79.51 Long term (current) use of inhaled steroids; Z79.899 Other long term (current) drug therapy
CPT/HCPCS: 71045; 74177; 80053; 81001; 83605; 84484; 85025; 85610; 85730; 86850; 86900; 86901; 93005; 93010; J7030; Q9967

== ENCOUNTER 2023-10-04 15:56 | Emergency (ER) | payer MEDICARE, OTHER ==
[~2023-10-04] VITALS: Ht 162.6 cm; Wt 127.0 kg
[~2023-10-04 15:56] MED LIST changes: +ALLOPURINOL100 M1 PO; +LIPITOR80 MG; +METFORMIN HCL500 M2; +MONT10T PO; +PRAM.5
[2023-10-04 16:22] VITALS: BP 127/66
[2023-10-04 17:01] LABS: BASOPHILS ABSOLUTE AUTO 0.03 K/mm3 (0.00-0.23); BASOPHILS PERCENT AUTO 0 % (0-2); EOSINOPHILS ABSOLUTE AUTO 0.09 K/mm3 (0.00-0.68); EOSINOPHILS PERCENT AUTO 1 % (0-6); Hematocrit 19.6 % (33.0-51.0); IMMATURE GRAN ABSOLUTE AUTO 0.11 K/mm3 (0.00-0.10); IMMATURE GRAN PERCENT AUTO 1 % (0-1); LYMPHOCYTES ABSOLUTE AUTO 0.72 K/mm3 (0.84-5.20); LYMPHOCYTES PERCENT AUTO 7 % (21-46); MONOCYTES ABSOLUTE AUTO 0.71 K/mm3 (0.16-1.47); MONOCYTES PERCENT AUTO 6 % (4-13); Mean Corpuscular HGB 19.7 pg (26.0-34.0); Mean Corpuscular HGB Conc 28.6 g/dL (31.5-36.5); Mean Corpuscular Volume 69 fL (80-100); Mean Platelet Volume 9.8 fL (9.1-12.4); NEUTROPHILS PERCENT AUTO 85 % (41-73); NRBC ABSOLUTE 0.07 K/mm3 (0.00-0.02); NRBC Auto 0.6 /100 WBC (0.0-0.2); Platelet Count 323 K/mm3 (150-400); RDW Standard Deviation 53.7 fL (35.1-46.3); Red Blood Cell Count 2.84 M/mm3 (3.80-5.20); White Blood Cell Count 11.06 K/mm3 (4.00-11.30)
[2023-10-04 17:05] LABS: Hemoglobin 5.6 g/dL (11.5-16.0)
[2023-10-04 17:11] LABS: Influenza A, PCR NEGATIVE (NEGATIVE); Influenza B, PCR NEGATIVE (NEGATIVE); Resp Syncytial Virus, PCR NEGATIVE (NEGATIVE)
[2023-10-04 17:24] LABS: Albumin, Blood 3.5 g/dL (3.4-5.0); Albumin/Globulin Ratio 1.1 (0.8-1.8); Bilirubin, Total 0.4 mg/dL (0.1-1.0); Bun/Creatinine Ratio 13.9 (12.0-20.0); Calcium, Blood 8.9 mg/dL (8.5-10.1); Creatinine, Blood 1.58 mg/dL (0.40-1.00); Globulin, Blood 3.3 g/dL (2.2-4.0); Total Protein, Blood 6.8 g/dL (6.4-8.2)
[2023-10-04 17:30] LABS: SARS-Cov-2 (COVID-19) PCR, MMC POSITIVE (NEGATIVE)
== END 2023-10-04 18:47 | disposition left against medical advice (07) ==
LOC: ER 15:56
PROVIDERS: Physician Assistant
DX: R50.9 Fever, unspecified (principal); Z53.29 Procedure and treatment not carried out because of patient's decision for other reasons; H92.03 Otalgia, bilateral; R53.1 Weakness
CPT/HCPCS: 0241U; 80053; 85025; 99283

== ENCOUNTER 2023-10-26 11:06 | Emergency (ER) | payer MEDICARE, OTHER ==
[~2023-10-26] VITALS: Ht 162.6 cm; Wt 81.7 kg
[2023-10-26 11:41] VITALS: BP 124/86
[2023-10-26] MEDS ORDERED: NEURONTIN300 MG PO (12:53)
[2023-10-26] MEDS ORDERED: FLUTICASONE-SA1 EAC8 (12:54)
[2023-10-26] MEDS ORDERED: PAXLOVID 150-11 EAC1 (12:54)
[2023-10-26] MEDS ORDERED: HYDCHL25 (12:54)
[2023-10-26] MEDS ORDERED: FENO54 PO (12:55)
[2023-10-26] MEDS ORDERED: INCRUSE ELLIPTA (12:55)
[2023-10-26] MEDS ORDERED: PANTOPRAZOLE SO40 M2 PO (12:56)
[2023-10-26] MEDS ORDERED: POTA8 PO (12:56)
[2023-10-26] MEDS ORDERED: EUTHYROX100 MC1 PO (12:56)
[2023-10-26] MEDS ORDERED: FUROSEMIDE40 MG PO (12:56)
[2023-10-26 13:14] LABS: BASOPHILS ABSOLUTE AUTO 0.05 K/mm3 (0.00-0.23); BASOPHILS PERCENT AUTO 0 % (0-2); EOSINOPHILS ABSOLUTE AUTO 0.14 K/mm3 (0.00-0.68); EOSINOPHILS PERCENT AUTO 1 % (0-6); Hematocrit 29.3 % (33.0-51.0); Hemoglobin 8.2 g/dL (11.5-16.0); IMMATURE GRAN ABSOLUTE AUTO 0.05 K/mm3 (0.00-0.10); IMMATURE GRAN PERCENT AUTO 0 % (0-1); LYMPHOCYTES ABSOLUTE AUTO 2.14 K/mm3 (0.84-5.20); LYMPHOCYTES PERCENT AUTO 17 % (21-46); MONOCYTES PERCENT AUTO 6 % (4-13); Mean Corpuscular HGB 18.9 pg (26.0-34.0); Mean Corpuscular Volume 67 fL (80-100); Mean Platelet Volume 9.1 fL (9.1-12.4); NEUTROPHILS ABSOLUTE AUTO 9.21 K/mm3 (1.96-9.15); NEUTROPHILS PERCENT AUTO 75 % (41-73); Platelet Count 555 K/mm3 (150-400); RDW Coefficient Variation 21.7 % (11.7-14.2); RDW Standard Deviation 51.4 fL (35.1-46.3); Red Blood Cell Count 4.35 M/mm3 (3.80-5.20); White Blood Cell Count 12.29 K/mm3 (4.00-11.30)
[2023-10-26 13:18] LABS: Albumin, Blood 4.1 g/dL (3.4-5.0); Bilirubin, Total 0.5 mg/dL (0.1-1.0); Bun/Creatinine Ratio 16.7 (12.0-20.0); Calcium, Blood 10.2 mg/dL (8.5-10.1); Creatinine, Blood 1.62 mg/dL (0.40-1.00); Globulin, Blood 4.1 g/dL (2.2-4.0); Potassium, Blood 3.8 mmol/L (3.5-5.5); Total Protein, Blood 8.2 g/dL (6.4-8.2)
[2023-10-26 13:24] LABS: Source, Urine Voided
[2023-10-26 13:40] LABS: Appearance, Urine Clear (Clear); Bilirubin, Urine Neg (Neg); Blood, Urine Neg (Neg); Color, Urine Yellow (P-Yellow); Glucose Qualitative, Urine Neg (Neg); Ketones, Urine Neg (Neg); Leukocyte Esterase, Urine Neg (Neg); Nitrite, Urine Neg (Neg); Protein, Urine 2+ (Neg); Urobilinogen, Urine NORM (Normal); pH, Urine 6.5 (5.0-8.0)
[2023-10-26 14:05] LABS: Influenza A, PCR NEGATIVE (NEGATIVE); Influenza B, PCR NEGATIVE (NEGATIVE); Resp Syncytial Virus, PCR NEGATIVE (NEGATIVE); SARS-Cov-2 (COVID-19) PCR, MMC NEGATIVE (NEGATIVE)
[2023-10-26 14:06] LABS: Bacteria Few /hpf; Hyaline Casts 0-2 /lpf (0-2); Red Blood Cells, Urine 0-2 /hpf (0-2); Squamous Epithelial Cells Mod /hpf (Few); White Blood Cells, Urine 0-2 /hpf (0-5)
[2023-10-26] MEDS ORDERED: LOPE2C PO (14:43)
[2023-10-26] MEDS ORDERED: ONDA4ODT MM (14:43)
== END 2023-10-26 15:00 | disposition home or self-care (01) ==
LOC: ER 11:06
PROVIDERS: Emergency Medicine
DX: B34.9 Viral infection, unspecified (principal); I10 Essential (primary) hypertension; J44.9 Chronic obstructive pulmonary disease, unspecified; F43.10 Post-traumatic stress disorder, unspecified; I47.10 Supraventricular tachycardia, unspecified; E11.9 Type 2 diabetes mellitus without complications; Z79.51 Long term (current) use of inhaled steroids; Z79.899 Other long term (current) drug therapy; Z88.8 Allergy status to other drugs, medicaments and biological substances; Z91.013 Allergy to seafood; Z91.030 Bee allergy status
CPT/HCPCS: 0241U; 80053; 81001; 85025; 96361; 96374; 99284-25; J2405; J7030

== ENCOUNTER 2023-11-05 09:30 | Inpatient (IN) | payer MEDICARE, OTHER ==
[2023-11-05] VITALS (26 sets, daily range): BP systolic 75–122; BP diastolic 39–75
[~2023-11-05] VITALS: Ht 162.6 cm; Wt 81.1 kg
[~2023-11-05 09:30] MED LIST changes: +EUTHYROX100 MC1 PO; +FENO54 PO; +FLUTICASONE-SA1 EAC8; +FUROSEMIDE40 MG PO; +HYDCHL25 PO; +INCRUSE ELLIPTA; -LIPITOR80 MG; +LIPITOR80 MG PO; -METFORMIN HCL500 M2; +METFORMIN HCL500 M2 PO; +NEURONTIN300 MG PO; +PANTOPRAZOLE SO40 M2 PO; +PAXLOVID 150-11 EAC1; +POTA8 PO
[2023-11-05 11:03] LABS: BASOPHILS ABSOLUTE AUTO 0.04 K/mm3 (0.00-0.23); BASOPHILS PERCENT AUTO 0 % (0-2); EOSINOPHILS ABSOLUTE AUTO 0.22 K/mm3 (0.00-0.68); EOSINOPHILS PERCENT AUTO 2 % (0-6); Hematocrit 20.5 % (33.0-51.0); IMMATURE GRAN ABSOLUTE AUTO 0.04 K/mm3 (0.00-0.10); IMMATURE GRAN PERCENT AUTO 0 % (0-1); LYMPHOCYTES ABSOLUTE AUTO 2.39 K/mm3 (0.84-5.20); LYMPHOCYTES PERCENT AUTO 25 % (21-46); MONOCYTES ABSOLUTE AUTO 0.49 K/mm3 (0.16-1.47); MONOCYTES PERCENT AUTO 5 % (4-13); Mean Corpuscular HGB 19.6 pg (26.0-34.0); Mean Corpuscular HGB Conc 29.3 g/dL (31.5-36.5); Mean Corpuscular Volume 67 fL (80-100); Mean Platelet Volume 9.9 fL (9.1-12.4); NEUTROPHILS ABSOLUTE AUTO 6.43 K/mm3 (1.96-9.15); NEUTROPHILS PERCENT AUTO 67 % (41-73); Platelet Count 316 K/mm3 (150-400); RDW Coefficient Variation 21.1 % (11.7-14.2); RDW Standard Deviation 50.2 fL (35.1-46.3); Red Blood Cell Count 3.06 M/mm3 (3.80-5.20); White Blood Cell Count 9.61 K/mm3 (4.00-11.30)
[2023-11-05 11:25] LABS: Albumin, Blood 3.9 g/dL (3.4-5.0); Albumin/Globulin Ratio 1.3 (0.8-1.8); Bilirubin, Total 0.4 mg/dL (0.1-1.0); Bun/Creatinine Ratio 15.3 (12.0-20.0); Calcium, Blood 9.7 mg/dL (8.5-10.1); Creatinine, Blood 4.43 mg/dL (0.40-1.00); Globulin, Blood 3.1 g/dL (2.2-4.0); Potassium, Blood 4.4 mmol/L (3.5-5.5)
[2023-11-05 11:27] LABS: International Normalized Ratio 0.93; Prothrombin Time Results 9.8 Sec (9.7-11.5)
[2023-11-05] MEDS ORDERED: NS 1,000 ML IV SCH (12:55)
[2023-11-05] MEDS ORDERED: Acetaminophen 325 MG TABLET PO PRN (13:50)
[2023-11-05] MEDS ORDERED: FLU VACC QS2023-24(6MOS UP)/PF 60 MCG/0.5 ML SYRINGE IM PRN (13:50)
[2023-11-05] MEDS ORDERED: Ondansetron HCl 2 MG / ML 2ML Vial IV PRN (13:50)
[2023-11-05 14:23] LABS: IMMATURE RETIC FRACTION 35.9 % (2.3-16.0); RETIC HGB EQUIVALENT 22.7 pg (28.20-36.60); RETICULOCYTE ABSOLUTE 0.0586 M/mm3 (0.0200-0.1100); RETICULOCYTE COUNT PERCENT 1.91 % (0.50-2.50)
[2023-11-05] MEDS ORDERED: NS 1,000 ML IV ONE (14:40)
[2023-11-05 15:00] LABS: Percent Saturation 4.2 % (15.0-50.0)
[2023-11-05] MEDS ORDERED: Nicotine 14 MG PATCH TOP SCH (15:00)
[2023-11-05] MEDS ORDERED: NS 250 ML IV PRN (15:10)
[2023-11-05] MEDS ORDERED: Insulin Human Lispro 100 Units/ML 3ML Syringe SC SCH (16:30)
[2023-11-05] MEDS ORDERED: PROM25 PO (16:58)
[2023-11-05] MEDS ORDERED: PROP10 PO (17:00)
--- NOTE | 2023-11-05 18:39 | NUR ---
PATIENT DIRECT ADMIT TO PCU 18. ALERT AND ORIENTED X4. ABLE TO GIVE COMPLETE HISTORY. PERRLA, DENIES NUMBNESS/TINGLING. MOVING ALL EXTREMITIES WNL. USING WALKER AT BASELINE. TELE SHOWING SR WITH HR 80'S. SBP 90-110'S. DENIES CHEST PAIN/PRESSURE/PALPITATIONS. PPP. EDEMA NOTED TO BLE. 1ST UNIT OF PRBC INFUSED AND 2ND BAG INFUSING AT THIS TIME. ON ROOM AIR SATING ABOVE 95%. LUNGS SOUNDING COARSE THROUGHOUT WITH OCCASIONAL EXPIRATORY WHEEZE. AUDIBLE SNORE WHEN SLEEPING. DENIES USING OXYGEN AND BIPAP/CPAP AT BASELINE. BOWEL TONES PRESENT. PATIENT COMPLAINS OF CHRONIC LEFT SIDED ABDOMINAL PAIN DUE TO HISTORY OF ABDOMINAL MASS AND CKD. RENAL ULTRASOUND COMPLETED IN PCU. DR. LIRA CONSULTED. EATING RENAL DIET. PATIENT STATES IT IS NORMAL FOR HER TO HAVE BLOODY STOOLS, HISTORY OF RECTAL PROLAPSE THAT PATIENT STATES SHE IS ABLE TO PUSH BACK IN HERSELF. DR. BIRD AT BEDSIDE AND RECTAL EXAM COMPLETED WITH THIS RN AND STUDENT RN PRESENT. NO BOWEL MOVEMENT YET, STOOL SAMPLE NEEDED. URINE SAMPLE SENT TO LAB. SKIN OVERALL SCATTERED BRUISING AND SCABS. NO PRESSURE ULCERS PRESENT. CALL LIGHT IN REACH. DENIES NEEDS AT THIS TIME.
--- NOTE | 2023-11-05 20:30 | NUR ---
PHYSICIAN COMMUNICATION CONTACTED DR LIRA TO NOTIFY HIM THAT SINCE THIS RN CAME ON SHIFT THE PATIENT'S BLOOD PRESSURE HAD BEEN HYPOTENSIVE WITH MAP RUNNING BETWEEN 55-63 AND THAT THE PATIENT WAS CURRENTLY BEING INFUSED WITH HER SECOND UNIT OF BLOOD. DR LIRA ORDERED 5 MG MIDODRINE TID HOLD FOR SBP >130, ALBUMIN 12.5 IV DAILY, BUMEX 2MG IV DAILY, ARANESP SUBCUTANEOUS EVERY OTHER WEEK HOLD FOR HEMATOCRIT >33, 1000 ML FLUID RESTRICTION, 24 HR URINE PROTEIN, AND RENAL PANEL, H+H, AND MAGNESIUM FOR THE MORNING. WILL CONTINUE TO MONITOR.
[2023-11-05] MEDS ORDERED: Midodrine 5 MG Tab PO SCH (21:00)
[2023-11-05] MEDS ORDERED: Docusate Sodium 100 MG Cap PO SCH (21:00)
[2023-11-05] MEDS ORDERED: Albumin Human 50 ML IV SCH (21:15)
[2023-11-05] MEDS ORDERED: Darbepoetin Alfa In Albumn Sol 40 MCG/0.4 ML SC SCH (22:00)
[2023-11-05 22:55] LABS: Hematocrit 23.4 % (33.0-51.0); Hemoglobin 7.3 g/dL (11.5-16.0)
[2023-11-06] VITALS (14 sets, daily range): BP systolic 75–118; BP diastolic 39–63
--- NOTE | 2023-11-06 00:42 | NUR ---
PHYSICIAN COMMUNICATION CONTACTED DR LIRA TO NOTIFY HIM THAT THE PATIENT'S BLOOD PRESSURE IS TRENDING DOWN AND THE MOST RECENT PRESSURE IS 79/42 WITH MAP OF 55. INFORMED HIM THAT THE PATIENT HAS FINISHED WITH THE BLOOD AND HAS RECEIVED HER FIRST DOSES OF MIDODRINE AND ALBUMIN. DR LIRA SAID TO CONTINUE TO MONITOR THE PATIENT SO LONG SHE IS NOT SYMPTOMATIC. NO NEW ORDERS GIVEN.
[2023-11-06 04:15] LABS: BASOPHILS ABSOLUTE AUTO 0.03 K/mm3 (0.00-0.23); BASOPHILS PERCENT AUTO 0 % (0-2); EOSINOPHILS ABSOLUTE AUTO 0.18 K/mm3 (0.00-0.68); EOSINOPHILS PERCENT AUTO 2 % (0-6); Hematocrit 23.7 % (33.0-51.0); Hemoglobin 7.2 g/dL (11.5-16.0); IMMATURE GRAN ABSOLUTE AUTO 0.03 K/mm3 (0.00-0.10); IMMATURE GRAN PERCENT AUTO 0 % (0-1); LYMPHOCYTES ABSOLUTE AUTO 3.45 K/mm3 (0.84-5.20); LYMPHOCYTES PERCENT AUTO 36 % (21-46); MONOCYTES ABSOLUTE AUTO 0.65 K/mm3 (0.16-1.47); MONOCYTES PERCENT AUTO 7 % (4-13); Mean Corpuscular HGB 21.6 pg (26.0-34.0); Mean Corpuscular HGB Conc 30.4 g/dL (31.5-36.5); Mean Corpuscular Volume 71 fL (80-100); Mean Platelet Volume 9.9 fL (9.1-12.4); NEUTROPHILS ABSOLUTE AUTO 5.16 K/mm3 (1.96-9.15); NEUTROPHILS PERCENT AUTO 54 % (41-73); Platelet Count 270 K/mm3 (150-400); RDW Coefficient Variation 22.5 % (11.7-14.2); RDW Standard Deviation 57.4 fL (35.1-46.3); Red Blood Cell Count 3.34 M/mm3 (3.80-5.20)
[2023-11-06 04:26] LABS: Albumin, Blood 3.3 g/dL (3.4-5.0); Albumin/Globulin Ratio 1.3 (0.8-1.8); Bilirubin, Total 0.4 mg/dL (0.1-1.0); Bun/Creatinine Ratio 19.7 (12.0-20.0); Calcium, Blood 8.5 mg/dL (8.5-10.1); Creatinine, Blood 3.2 mg/dL (0.40-1.00); Globulin, Blood 2.6 g/dL (2.2-4.0); Magnesium, Blood 1.6 mg/dL (1.6-2.4); Potassium, Blood 4.8 mmol/L (3.5-5.5); Total Protein, Blood 5.9 g/dL (6.4-8.2)
--- NOTE | 2023-11-06 06:26 | NUR ---
SHIFT SUMMARY PATIENT ALERT AND ORIENTED X4. STAND BY ASSIST WITH FWW. HAD NO COMPLAINTS OF PAIN OR SHORTNESS OF BREATH. PATIENT ON ROOM AIR, SPO2 >90%. BLOOD PRESSURE CONTINUES TO BY HYPOTENSIVE, HOWEVER PATIENT DENIES ANY DIZZINESS OR LIGHT HEADEDNESS, EVEN WHEN SITTING OR STANDING. PATIENT DOES NOT APPEAR TO BE UNSTEADY ON HER FEET WHEN WALKING EITHER. PATIENT IS SINUS RHYTHM ON TELE WITH NO EVENTS. WILL CONTINUE TO MONITOR. CALL LIGHT WITHIN REACH.
[2023-11-06] MEDS ORDERED: Bumetanide 0.25 MG/ML 10ML Vial IV SCH (09:00)
[2023-11-06] MEDS ORDERED: Albumin Human 50 ML IV SCH (09:00)
[2023-11-06 11:48] LABS: Stool Occult Blood Guaiac 1 Neg (Neg)
--- NOTE | 2023-11-06 18:03 | NUR ---
SHIFT SUMMARY UPON CARE ASSUMPTION, PT ASLEEP, WAKING TO VERBAL STIMULI. PT A&O X4. BP LOW & CBG FOUND TO BE 42. PT REPORTING "I JUST FEEL TIRED." PT ABLE TO EAT & DRINK APPLE JUICE & SNACK W/ CBG INCREASE TO 106 UPON RECHECK. PT BP IMPROVE W/ SCHEDULED PO MIDODRINE PER EMAR. VSS. SPO2 > 92% ON RA. MONITOR SHOWING SR, HR 70s-90s. PT 1 PERSON ASSIST TO BATHROOM. PT W/ DIARRHEA THIS SHIFT. STOOL SAMPLE SENT PER ORDER. PT REPORTING DAILY DIARRHEA SINCE 2014. 24 HR URINE RESTARTED THIS SHIFT D/T STOOL CONTAMINATION IN URINE COLLECTION. PT REPORTS FEELING BETTER THIS SHIFT.
[2023-11-07 00:09] VITALS: BP 106/62
[2023-11-07 04:10] VITALS: BP 125/66
--- NOTE | 2023-11-07 05:45 | NUR ---
SHIFT SUMMARY PT A&O X4, PLEASANT AND COOPERATIVE WITH CARE. PT REPORTS FEELING "VERY TIRED" BUT IS EASILY AWAKENED, FOLLOWS COMMANDS AND MOVES ALL EXTREMITIES. VSS; SBP 100 - 120, SR WITH RATE IN 80'S, AFEBRILE, SP02 >94% ON RA. PT DENIES CP/PRESSURE, SOB, DIZZINESS, N/V. PT DENIES BM THIS SHIFT, REPORTS "HAVE DECREASED A LITTLE BIT". PT VOIDING IN RESTROOM INDEPENDENTLY WITH FWW. 24 HOUR URINE COLLECTION STILL IN PLACE AND BEING COLLECTED. NO ACUTE EVENTS OVERNIGHT. F.R IN PLACE. HS CBG 117. PT CURRENTLY RESTING, CALL LIGHT IN REACH. WILL UPDATE ONCOMING RN
[2023-11-07] MEDS ORDERED: Pantoprazole Sodium 20 MG Tab PO SCH (07:15)
--- NOTE | 2023-11-07 07:31 | NUR ---
UPDATE PT AWAKENED AROUND O600 REQUESTING TO "GO HOME". PT STATES SHE IS "READY TO GO HOME AND DOES NOT WANT TO BE HERE ANYMORE". PT REPORTS SHE IS IN "A LOT OF PAIN" AND "DOESN'T WANT TO STAY ANY LONGER". THIS RN DISCUSSED AND EDUCATED PT ON RISKS AND BENEFITS OF LEAVING AMA. PT VERBALIZED UNDERSTANDING AND STILL REQUESTED TO LEAVE. AMA PAPERWORK COMPLETE WITH PT. DR. LIRA IN ROOM ROUNDING AND ADVISING PT NOT TO LEAVE, DISCUSSED WITH PT RISKS AND BENEFITS. PT UNDERSTANDS AND STILL WOULD LIKE TO LEAVE. HOSPITALIST AWARE AND CURRICULUM DEVELOPMENT SPECIALIST NOTIFIED
[2023-11-07] MEDS ORDERED: PANT40 PO (07:32)
[2023-11-07] MEDS ORDERED: BUME2 PO (07:32)
[2023-11-07 08:00] LABS: Albumin, Blood 3.9 g/dL (3.4-5.0); Anion Gap 1 mmol/L (6-16); Blood Urea Nitrogen 34 mg/dL (8-24); Bun/Creatinine Ratio 22.7 (12.0-20.0); CO2, Blood 28 mmol/L (21-32); Calcium, Blood 9.6 mg/dL (8.5-10.1); Chloride, Blood 109 mmol/L (98-108); Glomerular Filtration Rate 42 (60-); Glucose, Blood 112 mg/dL (70-99); Magnesium, Blood 1.8 mg/dL (1.6-2.4); Phosphorus, Blood 2.5 mg/dL (2.5-4.9); Sodium, Blood 138 mmol/L (136-145)
--- NOTE | 2023-11-07 09:09 | NUR ---
AMA PT VERY PLEASANT, A&O X4. PT LEFT AMA @ APPROX 0800 & REPORTS WILL CONTINUE TO FOLLOW WITH DR PANKAJ MARCUM ALEGRE & TAKE HER MEDICATIONS PRESCRIBED. PIV REMOVED. PT LEFT W/ FAMILY/FRIEND.
[2023-11-08] MEDS ORDERED: Bumetanide 1 MG Tab PO SCH (09:00)
== END 2023-11-07 08:37 | disposition left against medical advice (07) | DRG 683 ==
LOC: ER 09:30 → PCU 11:40
PROVIDERS: Internal Medicine Nephrology; Student in an Organized Health Care Education/Training Program; ADMIT Student in an Organized Health Care Education/Training Program
PROC: 30233N1 Transfusion of Nonautologous Red Blood Cells into Peripheral Vein, Percutaneous Approach (ICD-10-PCS; principal; 2023-11-05)
DX: N17.9 Acute kidney failure, unspecified (principal); E87.1 Hypo-osmolality and hyponatremia; K92.1 Melena; D50.0 Iron deficiency anemia secondary to blood loss (chronic); I95.9 Hypotension, unspecified; K62.3 Rectal prolapse; I12.9 Hypertensive chronic kidney disease with stage 1 through stage 4 chronic kidney disease, or unspecified chronic kidney disease; E11.22 Type 2 diabetes mellitus with diabetic chronic kidney disease; N18.32 Chronic kidney disease, stage 3b; J44.9 Chronic obstructive pulmonary disease, unspecified; E89.0 Postprocedural hypothyroidism; G25.81 Restless legs syndrome; M79.7 Fibromyalgia; G89.29 Other chronic pain; E11.42 Type 2 diabetes mellitus with diabetic polyneuropathy; F17.210 Nicotine dependence, cigarettes, uncomplicated; N25.81 Secondary hyperparathyroidism of renal origin; E87.70 Fluid overload, unspecified; R60.0 Localized edema; E83.39 Other disorders of phosphorus metabolism; E88.09 Other disorders of plasma-protein metabolism, not elsewhere classified; Z87.19 Personal history of other diseases of the digestive system; Z79.84 Long term (current) use of oral hypoglycemic drugs; Z85.841 Personal history of malignant neoplasm of brain; Z11.52 Encounter for screening for COVID-19
CPT/HCPCS: 36415; 74150; 76770; 80053; 80069; 82272; 82570; 82728; 82947; 83036; 83540; 83550; 83735; 84100; 84300; 84443; 84540; 85014; 85018; 85025; 85045; 85610; 85730; 86850; 86900; 86901; 86923; 93005; 93010; 94762; 99284-25; A9270; J0881; J7050; P9016; P9047

== ENCOUNTER 2024-01-18 12:05 | Day surgery (SDC) | payer MEDICARE, OTHER ==
[~2024-01-18 12:05] MED LIST changes: +BUME2 PO; +PROM25 PO
[2024-01-18] MEDS ORDERED: Bumetanide 0.25 MG/ML 10ML Vial IV SCH (12:15)
[2024-01-18] MEDS ORDERED: NS 250 ML IV SCH (12:15)
[2024-01-18 14:52] VITALS: BP 89/48
[2024-01-18 15:18] VITALS: BP 104/54
[2024-01-18 16:49] VITALS: BP 107/50
[2024-01-22] MEDS ORDERED: MONT10T (13:50)
[2024-01-22] MEDS ORDERED: Pulmicort Fle180 MCG (13:50)
[2024-01-22] MEDS ORDERED: PRAM.125 PO (13:51)
[2024-01-22] MEDS ORDERED: HYDCHL25 (13:51)
[2024-01-22] MEDS ORDERED: FURO20 PO (13:52)
== END 2024-01-18 16:50 | disposition home or self-care (01) ==
LOC: ATC 12:05
DX: I12.9 Hypertensive chronic kidney disease with stage 1 through stage 4 chronic kidney disease, or unspecified chronic kidney disease (principal); N18.32 Chronic kidney disease, stage 3b; D63.1 Anemia in chronic kidney disease; E11.22 Type 2 diabetes mellitus with diabetic chronic kidney disease; E11.21 Type 2 diabetes mellitus with diabetic nephropathy; N25.81 Secondary hyperparathyroidism of renal origin; E86.9 Volume depletion, unspecified; R80.9 Proteinuria, unspecified; E55.9 Vitamin D deficiency, unspecified; Z79.899 Other long term (current) drug therapy; Z91.013 Allergy to seafood
CPT/HCPCS: 36415; 36430; 86850; 86900; 86901; 86923; 96374; J7050; P9016

== ENCOUNTER 2024-04-19 14:44 | Inpatient (IN) | payer MEDICARE, OTHER ==
[~2024-04-19] VITALS: Ht 160 cm; Wt 78.5 kg
[~2024-04-19 14:44] MED LIST changes: +FURO20 PO; +HYDCHL25; +MONT10T; +PRAM.125 PO; +Pulmicort Fle180 MCG
[2024-04-19] MEDS ORDERED: Lactated Ringer's 1,000 ML IV SCH ×2 (15:10→18:05)
[2024-04-19 15:12] LABS: BASOPHILS ABSOLUTE AUTO 0.04 K/mm3 (0.00-0.23); BASOPHILS PERCENT AUTO 0 % (0-2); EOSINOPHILS ABSOLUTE AUTO 0.28 K/mm3 (0.00-0.68); EOSINOPHILS PERCENT AUTO 3 % (0-6); Hematocrit 25.4 % (33.0-51.0); Hemoglobin 7.4 g/dL (11.5-16.0); IMMATURE GRAN ABSOLUTE AUTO 0.03 K/mm3 (0.00-0.10); IMMATURE GRAN PERCENT AUTO 0 % (0-1); LYMPHOCYTES ABSOLUTE AUTO 2.74 K/mm3 (0.84-5.20); LYMPHOCYTES PERCENT AUTO 30 % (21-46); MONOCYTES ABSOLUTE AUTO 0.56 K/mm3 (0.16-1.47); MONOCYTES PERCENT AUTO 6 % (4-13); Mean Corpuscular HGB 21.8 pg (26.0-34.0); Mean Corpuscular HGB Conc 29.1 g/dL (31.5-36.5); Mean Corpuscular Volume 75 fL (80-100); Mean Platelet Volume 10.6 fL (9.1-12.4); NEUTROPHILS ABSOLUTE AUTO 5.48 K/mm3 (1.96-9.15); NEUTROPHILS PERCENT AUTO 60 % (41-73); Platelet Count 258 K/mm3 (150-400); RDW Coefficient Variation 21.9 % (11.7-14.2); RDW Standard Deviation 59.4 fL (35.1-46.3); Red Blood Cell Count 3.39 M/mm3 (3.80-5.20); White Blood Cell Count 9.13 K/mm3 (4.00-11.30)
[2024-04-19 15:28] LABS: Albumin, Blood 3.8 g/dL (3.4-5.0); Albumin/Globulin Ratio 1.4 (0.8-1.8); Bilirubin, Total 0.4 mg/dL (0.1-1.0); Calcium, Blood 9.1 mg/dL (8.5-10.1); Creatinine, Blood 5.26 mg/dL (0.40-1.00); Globulin, Blood 2.8 g/dL (2.2-4.0); Potassium, Blood 3.4 mmol/L (3.5-5.5); Total Protein, Blood 6.6 g/dL (6.4-8.2)
[2024-04-19] MEDS ORDERED: Albuterol 2.5 MG/3 ML VIAL INH PRN (18:05)
[2024-04-19] MEDS ORDERED: Acetaminophen 325 MG TABLET PO PRN (18:05)
[2024-04-19] MEDS ORDERED: Ondansetron HCl 2 MG / ML 2ML Vial IV PRN (18:05)
[2024-04-19] MEDS ORDERED: Loperamide HCl 2 MG Cap PO PRN (18:10)
[2024-04-19] MEDS ORDERED: Tiotropium Bromide 2.5 MCG/ACT MIST INHAL (10 ACT/4 GM) INH SCH (18:10)
[2024-04-19] MEDS ORDERED: Mometasone/Formoterol MDI 200/5 mcg 13 GM INH SCH (18:20)
[2024-04-19 18:35] LABS: Magnesium, Blood 1.6 mg/dL (1.6-2.4)
[2024-04-19 18:37] LABS: Prolactin 6.8 ng/mL (2.74-19.64); Thyroid Stimulating Hormone 19.2 uIU/mL (0.360-4.800)
[2024-04-19 20:19] LABS: PCO2 Venous 33.8 mmHg (38-42); pH Blood Venous 7.46 (7.34-7.37)
[2024-04-19 20:20] LABS: Base Excess Venous -0.2 mmol/L; Bicarbonate Venous 24.5 mmol/L (24.0-30.0)
[2024-04-19] MEDS ORDERED: Gabapentin 300 MG Cap PO SCH (21:00)
[2024-04-19 21:22] VITALS: BP 119/81
[2024-04-20 03:13] VITALS: BP 94/61
[2024-04-20 05:45] LABS: Hemoglobin 7.6 g/dL (11.5-16.0); Mean Corpuscular HGB 21.9 pg (26.0-34.0); Mean Corpuscular HGB Conc 29.2 g/dL (31.5-36.5); Mean Corpuscular Volume 75 fL (80-100); Platelet Count 271 K/mm3 (150-400); RDW Standard Deviation 59.7 fL (35.1-46.3); Red Blood Cell Count 3.47 M/mm3 (3.80-5.20); White Blood Cell Count 8.11 K/mm3 (4.00-11.30)
[2024-04-20] MEDS ORDERED: Pantoprazole Sodium 40 MG Tab PO SCH (06:00)
--- NOTE | 2024-04-20 06:18 | NUR ---
PROCESS VALIDATION ENGINEER SUMMARY PT ADMITTED FROM IN ER IN NO ACUTE DISTRESS. ONLY ISSUE OVERNIGHT IS PT IS STILL HAVING DIARRHEA AND DOESNT TAKE THE IMMODIUM BECAUSE SHE SAYS IT NEVER WORKS. NO SEIZURE ACTIVITY NOTED. SEIZURE PRECAUTIONS IN PLACE. SEIZURE PADS ON THE BED, SUCTION IN PLACE. IVF RUNNING ALL NIGHT AT 150/HR.
[2024-04-20 06:59] LABS: Bun/Creatinine Ratio 15.8 (12.0-20.0); Calcium, Blood 8.8 mg/dL (8.5-10.1); Creatinine, Blood 3.74 mg/dL (0.40-1.00); Magnesium, Blood 1.3 mg/dL (1.6-2.4); Potassium, Blood 3.2 mmol/L (3.5-5.5)
[2024-04-20] MEDS ORDERED: Mag Sulfate 1 GM/D5% 100ML 100 ML IV STA (07:43)
[2024-04-20] MEDS ORDERED: Potassium Chloride 40 MEQ in NS 250 ML IV ONE (07:45)
[2024-04-20 07:52] VITALS: BP 107/60
[2024-04-20] MEDS ORDERED: NS 250 ML IV PRN (07:55)
[2024-04-20] MEDS ORDERED: Heparin Sodium,Porcine 5,000 UNIT/0.5 ML SDV SC SCH (09:00)
[2024-04-20 14:55] VITALS: BP 115/60
--- NOTE | 2024-04-20 17:35 | NUR ---
SUMMARY PT SITTING UP IN BED WATCHING TV AND VISITING WITH FAMILY, PT HAS BEEN INDEPENDENT IN THE ROOM, PLEASANT AND COOPERATIVE WITH CARE T/O THE DAY, DENIES PAIN OR NAUSEA, VSS, WILL CONT TO MONITOR
[2024-04-20 20:21] VITALS: BP 123/64
[2024-04-21 04:22] VITALS: BP 123/65
--- NOTE | 2024-04-21 04:27 | NUR ---
SHIFT SUMMARY A/P TERRY. NO ACUTE CHANGES OVERNIGHT. VSS; TELE - NSR @ 80. NO SEIZURE-LIKE ACTIVITY VISUALIZED. PT SLEPT WELL OVERNIGHT. A&0 x4. TOLERATING ORALS. AMBULATES/VOIDING IND. PT REPORTS NO PAIN OVERNIGHT. ANTICIPATED D/C PENDING LAB RESULTS. CALL LIGHT IN REACH, BED IN LOWEST POSITION, WILL REPORT TO DAY RN.
[2024-04-21 08:25] LABS: Magnesium, Blood 1.4 mg/dL (1.6-2.4)
[2024-04-21 08:26] LABS: Bun/Creatinine Ratio 21.1 (12.0-20.0); Calcium, Blood 8.4 mg/dL (8.5-10.1); Creatinine, Blood 1.8 mg/dL (0.40-1.00); Potassium, Blood 4.1 mmol/L (3.5-5.5)
[2024-04-21] MEDS ORDERED: Mag Sulfate 1 GM/D5% 100ML 100 ML IV STA (09:03)
--- NOTE | 2024-04-21 13:36 | NUR ---
REPORT RECEIVED VERIFIED, VERY PLEASENT AND JOYFUL PT. A/O X 4 HAS NO COMPLAINTS NO DISTRESS. EATING BREAKFAST. DISCHARGE ORDERS GIVEN PT, PT AMBULATING IN SANCHEZ WITH FWW. PT AT BEDSIDE INSTRUCTIONS GIVEN IV DCED. PT DISCHARGED VIA WHEEL CHAIR.
== END 2024-04-21 13:15 | disposition home or self-care (01) | DRG 684 ==
LOC: ER 14:44 → MEDS 18:03
PROVIDERS: Emergency Medicine; Internal Medicine; Nurse Practitioner Acute Care; ADMIT Internal Medicine
DX: N17.9 Acute kidney failure, unspecified (principal); K52.831 Collagenous colitis; E87.6 Hypokalemia; R56.9 Unspecified convulsions; E83.42 Hypomagnesemia; I12.9 Hypertensive chronic kidney disease with stage 1 through stage 4 chronic kidney disease, or unspecified chronic kidney disease; J44.9 Chronic obstructive pulmonary disease, unspecified; F43.10 Post-traumatic stress disorder, unspecified; N18.32 Chronic kidney disease, stage 3b; E11.22 Type 2 diabetes mellitus with diabetic chronic kidney disease; E03.9 Hypothyroidism, unspecified; K21.9 Gastro-esophageal reflux disease without esophagitis; M10.9 Gout, unspecified; D50.9 Iron deficiency anemia, unspecified; F17.210 Nicotine dependence, cigarettes, uncomplicated; D63.1 Anemia in chronic kidney disease; M19.90 Unspecified osteoarthritis, unspecified site; M79.7 Fibromyalgia; E86.0 Dehydration; F32.A Depression, unspecified; I95.9 Hypotension, unspecified; Z87.19 Personal history of other diseases of the digestive system; Z98.890 Other specified postprocedural states; Z90.710 Acquired absence of both cervix and uterus; Z90.49 Acquired absence of other specified parts of digestive tract; Z91.013 Allergy to seafood; Z91.038 Other insect allergy status; Z88.8 Allergy status to other drugs, medicaments and biological substances; Z79.899 Other long term (current) drug therapy; Z79.890 Hormone replacement therapy; Z79.51 Long term (current) use of inhaled steroids; Z79.84 Long term (current) use of oral hypoglycemic drugs; Z79.01 Long term (current) use of anticoagulants
CPT/HCPCS: 36415; 70450; 80048; 80053; 82550; 82803; 83735; 83880; 84146; 84443; 85025; 85027; 93005; 93010; 94640; 94664; 94760; 94762; 96360; 99285-25; A9270; J1644; J3475; J3480; J7050; J7120

== ENCOUNTER → 2024-04-26 | Outpatient (CLI) | payer MEDICARE, OTHER ==
[2024-04-26 16:34] LABS: Albumin, Blood 4.3 g/dL (3.4-5.0); Albumin/Globulin Ratio 1.4 (0.8-1.8); Bilirubin, Total 0.4 mg/dL (0.1-1.0); Bun/Creatinine Ratio 12.8 (12.0-20.0); Calcium, Blood 8.7 mg/dL (8.5-10.1); Creatinine, Blood 1.87 mg/dL (0.40-1.00); Phosphorus, Blood 3.4 mg/dL (2.5-4.9); Potassium, Blood 3.5 mmol/L (3.5-5.5); Total Protein, Blood 7.3 g/dL (6.4-8.2)
[2024-04-26 16:35] LABS: Albumin, Blood 4.3 g/dL (3.4-5.0); Anion Gap 10 mmol/L (3-11); Blood Urea Nitrogen 25 mg/dL (8-24); Bun/Creatinine Ratio 13.2 (12.0-20.0); CO2, Blood 33 mmol/L (21-32); Calcium, Blood 8.8 mg/dL (8.5-10.1); Chloride, Blood 95 mmol/L (98-108); Creatinine, Blood 1.89 mg/dL (0.40-1.00); Glomerular Filtration Rate 32 (60-); Glucose, Blood 87 mg/dL (70-99); Phosphorus, Blood 3.4 mg/dL (2.5-4.9); Potassium, Blood 3.5 mmol/L (3.5-5.5); Sodium, Blood 134 mmol/L (136-145)
== END | disposition home or self-care (01) ==
LOC: LAB SHORT 15:31
PROVIDERS: Internal Medicine Hematology & Oncology; Internal Medicine Nephrology
DX: N18.30 Chronic kidney disease, stage 3 unspecified (principal); D63.1 Anemia in chronic kidney disease; G60.9 Hereditary and idiopathic neuropathy, unspecified; R76.9 Abnormal immunological finding in serum, unspecified; R94.5 Abnormal results of liver function studies; R03.0 Elevated blood-pressure reading, without diagnosis of hypertension
CPT/HCPCS: 80053; 80069; 84100

== ENCOUNTER 2024-06-06 12:50 | Inpatient (IN) | payer MEDICARE, OTHER ==
[~2024-06-06] VITALS: Ht 190.5 cm; Wt 86.4 kg
[~2024-06-06 12:50] MED LIST changes: -EUTHYROX100 MC1 PO; +EUTHYROX112 MC1 PO
[2024-06-06] MEDS ORDERED: LORazepam 2 MG/ML 1ML Injection IV ONE (16:10)
[2024-06-06 16:57] LABS: BASOPHILS ABSOLUTE AUTO 0.02 K/mm3 (0.00-0.23); BASOPHILS PERCENT AUTO 0 % (0-2); EOSINOPHILS ABSOLUTE AUTO 0.16 K/mm3 (0.00-0.68); EOSINOPHILS PERCENT AUTO 1 % (0-6); IMMATURE GRAN ABSOLUTE AUTO 0.12 K/mm3 (0.00-0.10); IMMATURE GRAN PERCENT AUTO 1 % (0-1); LYMPHOCYTES ABSOLUTE AUTO 2.77 K/mm3 (0.84-5.20); LYMPHOCYTES PERCENT AUTO 22 % (21-46); MONOCYTES ABSOLUTE AUTO 0.51 K/mm3 (0.16-1.47); MONOCYTES PERCENT AUTO 4 % (4-13); Mean Corpuscular HGB 19.8 pg (26.0-34.0); Mean Corpuscular HGB Conc 28.2 g/dL (31.5-36.5); Mean Corpuscular Volume 70 fL (80-100); Mean Platelet Volume 10.6 fL (9.1-12.4); NEUTROPHILS ABSOLUTE AUTO 9.09 K/mm3 (1.96-9.15); NEUTROPHILS PERCENT AUTO 72 % (41-73); Platelet Count 467 K/mm3 (150-400); RDW Coefficient Variation 22.6 % (11.7-14.2); RDW Standard Deviation 54.8 fL (35.1-46.3); Red Blood Cell Count 2.32 M/mm3 (3.80-5.20); White Blood Cell Count 12.67 K/mm3 (4.00-11.30)
[2024-06-06] MEDS ORDERED: NS 1,000 ML IV SCH (17:10)
[2024-06-06 17:17] LABS: Hematocrit 16.3 % (33.0-51.0); Hemoglobin 4.6 g/dL (11.5-16.0)
[2024-06-06] MEDS ORDERED: Ondansetron HCl 2 MG / ML 2ML Vial IV PRN (17:55)
[2024-06-06] MEDS ORDERED: Metoclopramide HCl 5MG / ML 2ML Vial IV PRN (17:55)
[2024-06-06] MEDS ORDERED: Acetaminophen 325 MG TABLET PO PRN (17:55)
[2024-06-06] MEDS ORDERED: Albuterol 2.5 MG/3 ML VIAL INH PRN (17:55)
[2024-06-06] MEDS ORDERED: Tiotropium Bromide 2.5 MCG/ACT MIST INHAL (10 ACT/4 GM) INH SCH (18:00)
[2024-06-06] MEDS ORDERED: Albuterol 2.5 MG/3 ML VIAL INH ONE (18:00)
[2024-06-06] MEDS ORDERED: Mometasone/Formoterol MDI 100/5 mcg 13 GM INH SCH (18:10)
[2024-06-06 20:27] LABS: Hematocrit 21.1 % (33.0-51.0); Hemoglobin 6.5 g/dL (11.5-16.0); Mean Corpuscular HGB 21.8 pg (26.0-34.0); Mean Corpuscular HGB Conc 30.8 g/dL (31.5-36.5); Mean Corpuscular Volume 71 fL (80-100); Mean Platelet Volume 10.2 fL (9.1-12.4); Platelet Count 440 K/mm3 (150-400); RDW Coefficient Variation 22.9 % (11.7-14.2); RDW Standard Deviation 57.8 fL (35.1-46.3); Red Blood Cell Count 2.98 M/mm3 (3.80-5.20)
[2024-06-06 20:37] LABS: Source, Urine Straight Cath
[2024-06-06 20:46] LABS: Appearance, Urine Clear (Clear); Bilirubin, Urine Neg (Neg); Blood, Urine Neg (Neg); Glucose Qualitative, Urine Neg (Neg); Ketones, Urine Neg (Neg); Leukocyte Esterase, Urine 1+ (Neg); Nitrite, Urine Neg (Neg); Protein, Urine Neg (Neg); Urobilinogen, Urine NORM (Normal); pH, Urine 6.5 (5.0-8.0)
[2024-06-06 20:59] LABS: Color, Urine Pale Yellow (P-Yellow)
[2024-06-06 21:00] LABS: Bacteria Few /hpf; Red Blood Cells, Urine 0-2 /hpf (0-2); Squamous Epithelial Cells Few /hpf (Few); White Blood Cells, Urine 0-2 /hpf (0-5)
[2024-06-06] MEDS ORDERED: Montelukast Sodium 10 MG Tab PO SCH (21:00)
[2024-06-06 21:18] LABS: Influenza A, PCR NEGATIVE (NEGATIVE); Influenza B, PCR NEGATIVE (NEGATIVE); Resp Syncytial Virus, PCR NEGATIVE (NEGATIVE); SARS-Cov-2 (COVID-19) PCR, MMC NEGATIVE (NEGATIVE)
[2024-06-07] VITALS (28 sets, daily range): BP systolic 84–125; BP diastolic 51–87
[2024-06-07] MEDS ORDERED: Lactated Ringer's 1,000 ML IV ONE (00:05)
[2024-06-07 00:13] LABS: Hematocrit 24.2 % (33.0-51.0); Hemoglobin 7.4 g/dL (11.5-16.0)
--- NOTE | 2024-06-07 01:16 | NUR ---
ARRIVAL TO ICU: RECEIVED REPORT FROM TRISH LOCKHART AT 0015. PT ARRIVED TO ICU BED 07 VIA GURNEY AT 0035. PT VERY DROWSY UPON ARRIVAL. ALERT AND ORIENTED X2-3. ATTEMPTS TO ANSWER QUESTIONS BUT QUICKLY FALLS BACK ASLEEP AND MUMBLES OFTEN, HARD TO UNDERSTAND. PT ON RA, SPO2 >95%. LUNGS WHEEZY AND DIMINISHED T/O. CIGARETTE FILTER INSPECTOR IN PLACE, SR WITH HR 70'S. MAP CURRENTLY >65. PIV TO RAC AND LAC BOTH PATENT AND SALINE LOCKED. PT AFEBRILE UPON ARRIVAL. PUREWICK IN PLACE, DRAINING YELLOW URINE TO SUCTION. NO BM YET. PUPILS EQUAL AND REACTIVE. MOVEMENT IN ALL EXTREMETIES NOTED. STRONG RADIAL AND PEDAL PULSES NOTED. BED LOW AND LOCKED, CALL LIGHT IN REACH. ALL BELONGINGS ARRIVED WITH PT.
[2024-06-07] MEDS ORDERED: Midodrine 5 MG Tab PO SCH (02:15)
[2024-06-07 03:24] LABS: Hematocrit 25.6 % (33.0-51.0); Mean Corpuscular HGB 22.6 pg (26.0-34.0); Mean Corpuscular HGB Conc 31.3 g/dL (31.5-36.5); Mean Corpuscular Volume 72 fL (80-100); Mean Platelet Volume 10.1 fL (9.1-12.4); Platelet Count 440 K/mm3 (150-400); RDW Coefficient Variation 21.6 % (11.7-14.2); RDW Standard Deviation 56.3 fL (35.1-46.3); Red Blood Cell Count 3.54 M/mm3 (3.80-5.20)
[2024-06-07 03:57] LABS: Albumin, Blood 2.6 g/dL (3.4-5.0); Albumin/Globulin Ratio 0.6 (0.8-1.8); Bun/Creatinine Ratio 20.2 (12.0-20.0); Calcium, Blood 9.1 mg/dL (8.5-10.1); Creatinine, Blood 3.92 mg/dL (0.40-1.00); Globulin, Blood 4.6 g/dL (2.2-4.0); Magnesium, Blood 1.9 mg/dL (1.6-2.4); Phosphorus, Blood 4.2 mg/dL (2.5-4.9); Total Protein, Blood 7.2 g/dL (6.4-8.2)
[2024-06-07 03:58] LABS: International Normalized Ratio 0.96; Prothrombin Time Results 10.3 Sec (9.7-11.5)
[2024-06-07] MEDS ORDERED: Pantoprazole Sodium 40 MG Tab PO SCH (06:00)
[2024-06-07] MEDS ORDERED: Levothyroxine Sodium 0.088 MG Tab PO SCH (06:00)
--- NOTE | 2024-06-07 06:12 | NUR ---
SHIFT SUMMARY: NO ACUTE CHANGES SINCE ARRIVAL TO ICU. PT CONTINUES TO BE DROWSY BUT IS MORE EASILY AROUSABLE. FALLS BACK ASLEEP QUICKLY WHEN NOT STIMULATED. ORIENTED X3-4. TOLERATING PO MEDICATION, MIDODRINE GIVEN FOR LOW BP WITH GOOD RESULT. MAP >65. PT IN SR WITH HR 70'S. CONTINUES ON RA. SPO2 >95%. PUREWICK IN PLACE DRAINING LARGE AMOUNT OF YELLOW URINE. NO BM THIS SHIFT. REMAINS SALINE LOCKED. PT CONTINUALLY STATING SHE WANTS TO GO HOME. BED LOW AND CALL LIGHT IN REACH.
--- NOTE | 2024-06-07 09:17 | NUR ---
ASSUMPTION OF CARE BEDSIDE REPORT RECEIVED FROM [facility] NURSE. PT A&OX4, PLEASANT, JOKING WITH STAFF BUT BECOMES QUITE SADDENED WHEN ASKED THE DATE. PT STATES HER SPOUSE DURING THE - ATTACKS & THIS TIME OF YEAR IS VERY HARD ON HER. PT INITIALLY HAD A PUREWICK IN PLACE BUT REQUESTING TO BE REMOVED. PT AMBULATES TO BEDSIDE COMMODE WITHOUT ASSISTANCE, DENIES DIZZINESS, SOB WHILE AMBULATING. TOLERATING PO INTAKE, ADVANCED DIET. NO OTHER ACUTE COMPLAINTS FROM PT, PT REQUESTING TO GO HOME.
--- NOTE | 2024-06-07 11:54 | NUR ---
TRANSFER TO PCU 15 PT ARRIVED T PCU 15 AT APPROXIMATELY 1045 VIA WHEELCHAIR. PT TRANSFERED THE HOSPITAL BED IND AND IS IND IN ROOM. A&Ox4, CALLS AND COMMUNICATES NEEDS APPROPRIATELY. BP STABLE, SINUS 70's, DENIES CP/PRESSURE. SpO2> 92% RA, DENIES SOB. C/O BACK PAIN, MEDICATED PER EMAR. ORIENTED TO CALL LIGHT/UNIT. BED IN LOWEST POSITION, CALL LIGHT IN REACH.
[2024-06-07] MEDS ORDERED: Darbepoetin Alfa In Albumn Sol 40 MCG/0.4 ML SC SCH (12:00)
[2024-06-07 12:12] LABS: BASOPHILS ABSOLUTE AUTO 0.02 K/mm3 (0.00-0.23); BASOPHILS PERCENT AUTO 0 % (0-2); EOSINOPHILS ABSOLUTE AUTO 0.09 K/mm3 (0.00-0.68); EOSINOPHILS PERCENT AUTO 1 % (0-6); Hematocrit 27.7 % (33.0-51.0); Hemoglobin 8.5 g/dL (11.5-16.0); IMMATURE GRAN ABSOLUTE AUTO 0.17 K/mm3 (0.00-0.10); IMMATURE GRAN PERCENT AUTO 2 % (0-1); LYMPHOCYTES ABSOLUTE AUTO 1.98 K/mm3 (0.84-5.20); LYMPHOCYTES PERCENT AUTO 23 % (21-46); MONOCYTES ABSOLUTE AUTO 0.32 K/mm3 (0.16-1.47); MONOCYTES PERCENT AUTO 4 % (4-13); Mean Corpuscular HGB 22.5 pg (26.0-34.0); Mean Corpuscular HGB Conc 30.7 g/dL (31.5-36.5); Mean Corpuscular Volume 73 fL (80-100); Mean Platelet Volume 9.9 fL (9.1-12.4); NEUTROPHILS ABSOLUTE AUTO 6.02 K/mm3 (1.96-9.15); NEUTROPHILS PERCENT AUTO 70 % (41-73); Platelet Count 490 K/mm3 (150-400); RDW Coefficient Variation 21.8 % (11.7-14.2); RDW Standard Deviation 56.5 fL (35.1-46.3); Red Blood Cell Count 3.78 M/mm3 (3.80-5.20)
[2024-06-07 12:48] LABS: Albumin, Blood 2.8 g/dL (3.4-5.0); Albumin/Globulin Ratio 0.5 (0.8-1.8); Bilirubin, Total 0.6 mg/dL (0.1-1.0); Bun/Creatinine Ratio 22.7 (12.0-20.0); Calcium, Blood 9.8 mg/dL (8.5-10.1); Creatinine, Blood 3.09 mg/dL (0.40-1.00); Globulin, Blood 5.1 g/dL (2.2-4.0); Potassium, Blood 3.7 mmol/L (3.5-5.5); Total Protein, Blood 7.9 g/dL (6.4-8.2)
[2024-06-07] MEDS ORDERED: METFORMIN HCL500 M2 PO (13:01)
[2024-06-07] MEDS ORDERED: FLUTICASONE-SAL12 G1 INH (13:04)
[2024-06-07] MEDS ORDERED: BUME2 PO (13:06)
[2024-06-07] MEDS ORDERED: MIDO5 PO (13:08)
[2024-06-07] MEDS ORDERED: Phenergan25 M1 PO (13:09)
[2024-06-07] MEDS ORDERED: LISI20 PO (13:10)
[2024-06-07] MEDS ORDERED: POTA8 PO (13:11)
[2024-06-07] MEDS ORDERED: ANORO ELLIPTA1 EACH INH (13:17)
--- NOTE | 2024-06-07 15:02 | NUR ---
DISCHARGE SUMMARY SEE PREVIOUS NOTE, NO ACUTE CHANGES. DISCHARGE INSTRUCTIONS PROVIDED WITH VISITOR AT BEDSIDE. ALL PT BELONGINGS SENT WITH VISITOR AND PT TAKEN OUT VIA WHEELCHAIR BY CLINICAL STAFF MEMBER AT APPROXIMATELY 1455.
== END 2024-06-07 14:53 | disposition home or self-care (01) | DRG 812 ==
LOC: ER 12:50 → ERHOLD 17:51 → ICUE 17:51 → PCU 06-07 10:41
PROVIDERS: Nurse Practitioner Acute Care; Student in an Organized Health Care Education/Training Program; ADMIT Student in an Organized Health Care Education/Training Program
PROC: 30233N1 Transfusion of Nonautologous Red Blood Cells into Peripheral Vein, Percutaneous Approach (ICD-10-PCS; principal; 2024-06-06)
DX: D62 Acute posthemorrhagic anemia (principal); K62.5 Hemorrhage of anus and rectum; N17.9 Acute kidney failure, unspecified; N18.4 Chronic kidney disease, stage 4 (severe); N25.81 Secondary hyperparathyroidism of renal origin; K52.831 Collagenous colitis; I12.9 Hypertensive chronic kidney disease with stage 1 through stage 4 chronic kidney disease, or unspecified chronic kidney disease; J44.9 Chronic obstructive pulmonary disease, unspecified; F43.10 Post-traumatic stress disorder, unspecified; E11.22 Type 2 diabetes mellitus with diabetic chronic kidney disease; E03.9 Hypothyroidism, unspecified; M79.7 Fibromyalgia; E88.09 Other disorders of plasma-protein metabolism, not elsewhere classified; M10.9 Gout, unspecified; D63.1 Anemia in chronic kidney disease; K21.9 Gastro-esophageal reflux disease without esophagitis; E87.70 Fluid overload, unspecified; G40.909 Epilepsy, unspecified, not intractable, without status epilepticus; Z90.89 Acquired absence of other organs; Z90.710 Acquired absence of both cervix and uterus; Z87.891 Personal history of nicotine dependence; Z91.038 Other insect allergy status; Z88.8 Allergy status to other drugs, medicaments and biological substances; Z91.013 Allergy to seafood; Z79.899 Other long term (current) drug therapy; Z79.52 Long term (current) use of systemic steroids; Z79.890 Hormone replacement therapy; E78.00 Pure hypercholesterolemia, unspecified; R94.5 Abnormal results of liver function studies; R94.6 Abnormal results of thyroid function studies
CPT/HCPCS: 0241U; 36415; 36430; 71045; 76770; 80053; 80069; 81001; 83735; 84100; 85014; 85018; 85025; 85027; 85610; 86850; 86870; 86900; 86901; 86902; 86905; 86922; 87086; 94640; 94664; 94762; 96374; 99284-25; A9270; J0881; J2060; J7030; J7060; J7120; P9016

== ENCOUNTER 2024-06-16 01:30 | Day surgery (SDC) | payer MEDICARE, OTHER ==
[~2024-06-16 01:30] MED LIST changes: +ANORO ELLIPTA1 EACH INH; +FLUTICASONE-SAL12 G1 INH; +MIDO5 PO; +Phenergan25 M1 PO
[2024-06-16] MEDS ORDERED: Furosemide 10 MG/ML 4ML Vial IV SCH (07:00)
[2024-06-16] MEDS ORDERED: NS 250 ML IV SCH (07:00)
[2024-06-16 08:05] VITALS: BP 96/61
[2024-06-16 08:20] VITALS: BP 105/58
[2024-06-16 10:17] VITALS: BP 105/60
[2024-06-16 10:37] VITALS: BP 108/59
[2024-06-16 11:36] VITALS: BP 103/68
[2024-06-16 12:07] VITALS: BP 121/68
== END 2024-06-16 12:06 | disposition home or self-care (01) ==
LOC: ATC 01:30
DX: I12.9 Hypertensive chronic kidney disease with stage 1 through stage 4 chronic kidney disease, or unspecified chronic kidney disease (principal); E11.22 Type 2 diabetes mellitus with diabetic chronic kidney disease; N18.32 Chronic kidney disease, stage 3b; D63.1 Anemia in chronic kidney disease; E11.21 Type 2 diabetes mellitus with diabetic nephropathy; F17.200 Nicotine dependence, unspecified, uncomplicated; Z79.899 Other long term (current) drug therapy; Z91.013 Allergy to seafood
CPT/HCPCS: 36415; 36430; 86850; 86870; 86900; 86901; 86922; 96374; J1940; J7050; P9016

== ENCOUNTER 2024-08-15 16:07 | Emergency (ER) | payer MEDICARE, OTHER ==
[~2024-08-15] VITALS: Ht 160 cm; Wt 84.8 kg
[~2024-08-15 16:07] MED LIST changes: +FLUT1DIS5 INH; +GABA300 PO; +METF500 PO
[2024-08-15 16:44] VITALS: BP 110/71
== END 2024-08-15 18:19 | disposition left against medical advice (07) ==
LOC: ER 16:07
DX: R53.1 Weakness (principal); R79.9 Abnormal finding of blood chemistry, unspecified; Z53.21 Procedure and treatment not carried out due to patient leaving prior to being seen by health care provider
CPT/HCPCS: 99281

== ENCOUNTER → 2024-11-07 | Outpatient (CLI) | payer MEDICARE, OTHER ==
[~2024-11-07] MED LIST changes: +CLOBETTC TOP; +FURO40 PO; +HYDCHL12.5 PO; +INCRUSE ELLIPTA INH; +LEVFLO500 PO; +LEVSOD75 PO; +MESA250ER PO; +OCUFLOX511; +POTA10T PO; +PRED20 PO; +PYRI100 PO; +SPIR50 PO; +SYMBICORT 80-10.2 GM INH; +ZESTRIL40 M1 PO
== END ==
LOC: LAB 16:00 → LAB SHORT 16:00
DX: N18.6 End stage renal disease (principal); D64.9 Anemia, unspecified
CPT/HCPCS: 85018

== ENCOUNTER 2024-11-18 08:56 | Day surgery (SDC) | payer MEDICARE, OTHER ==
[~2024-11-18] VITALS: Ht 162.6 cm; Wt 85.7 kg
[~2024-11-18 08:56] MED LIST changes: -LEVSOD75 PO; -MESA250ER PO; -OCUFLOX511; -POTA10T PO; -PRED20 PO; -PYRI100 PO; -SPIR50 PO
[2024-11-18 09:39] VITALS: BP 88/52
[2024-11-18 09:42] VITALS: BP 88/52
[2024-11-18] MEDS ORDERED: NS 250 ML IV ONE (10:04)
[2024-11-18] MEDS ORDERED: Heparin Sodium 1000 Units/ML 10ML MDV ONE ×2 (10:04→10:30)
[2024-11-18] MEDS ORDERED: Midazolam HCl 1MG / ML 2ML Vial ONE (10:29)
[2024-11-18] MEDS ORDERED: FentaNYL Citrate 50 MCG/ML 2 ML Injection ONE (10:30)
[2024-11-18] MEDS ORDERED: NS 500 ML IV ONE (10:30)
[2024-11-18 11:37] VITALS: BP 82/47
--- NOTE | 2024-11-18 11:37 | NUR ---
PT RETURNED TO RECOVERY ROOM IN RECLINER. PERMCATH SITE SOFT NON-TENDER WITH NO HEMATOMA, NO BLEEDING AND INTACT DRESSING. PT DRINKING WATER. CALL LIGHT IN REACH.
[2024-11-18 11:45] VITALS: BP 90/61
[2024-11-18 12:27] VITALS: BP 105/51
--- NOTE | 2024-11-18 12:43 | NUR ---
NO CHANGES TO RIGHT PERM CATH SITE. DISCHARGE INSTRUCTIONS REVIEWED ALL QUESTIONS ANSWERED.22 G IV DISCONTINUED FROM LEFT AC WITH INTACT CANNULA. PT ESCORTED OUT VIA WHEELCHAIR ESCORT.
== END 2024-11-18 12:53 | disposition home or self-care (01) ==
LOC: MHTC 08:56
DX: T82.898A Other specified complication of vascular prosthetic devices, implants and grafts, initial encounter (principal); N18.6 End stage renal disease; Z91.013 Allergy to seafood; Z91.030 Bee allergy status; Z88.8 Allergy status to other drugs, medicaments and biological substances; Z79.899 Other long term (current) drug therapy; Y84.9 Medical procedure, unspecified as the cause of abnormal reaction of the patient, or of later complication, without mention of misadventure at the time of the procedure
CPT/HCPCS: 36581; 37799; 77001; 99152; 99153; C1725; C1750; C1769; J1644; J2250; J3010; J7040; J7050; Q9967

== ENCOUNTER 2024-12-22 07:36 | Day surgery (SDC) | payer MEDICARE, OTHER ==
[~2024-12-22] VITALS: Ht 160 cm; Wt 81.2 kg
[2024-12-22] VITALS (7 sets, daily range): BP systolic 93–106; BP diastolic 69–85
[~2024-12-22 07:36] MED LIST changes: +LEVSOD75 PO; +MESA250ER PO; +OCUFLOX511; +POTA10T PO; +PRED20 PO; +PYRI100 PO
[2024-12-22] MEDS ORDERED: NS 250 ML IV ONE (09:54)
[2024-12-22] MEDS ORDERED: Heparin Sodium 1000 Units/ML 10ML MDV ONE (09:54)
[2024-12-22] MEDS ORDERED: NS 500 ML IV ONE (10:17)
[2024-12-22] MEDS ORDERED: Midazolam HCl 1MG / ML 2ML Vial ONE (10:17)
[2024-12-22] MEDS ORDERED: FentaNYL Citrate 50 MCG/ML 2 ML Injection ONE (10:17)
[2024-12-22] MEDS ORDERED: Heparin Sodium 10,000 Units/ML 1ML MDV ONE (10:31)
--- NOTE | 2024-12-22 11:07 | NUR ---
PATIENT ARRIVED TO RECOVERY ROOM SITTING UPRIGHT IN RECLINER CONVERSING NORMALLY. PATIENT DENYING ANY PAIN. MINIMAL OOZING NOTED AT PROCEDURE SITE. VSS ON RA
--- NOTE | 2024-12-22 11:42 | NUR ---
PATIENT TOLERATING PO INTAKE WELL. VSS ONRA. PATIENT DENYING ANY PAIN. DISCHARGE INSTRUCTIONS REVIEWED WITH PATIENT
[2024-12-22] MEDS ORDERED: Lidocaine 2%-Epineph 1:100000 20 ML MDV ONE (12:13)
--- NOTE | 2024-12-22 12:35 | NUR ---
LIDO WITH EPI INJECTED SUB Q AROUND PERMCATH CATHETER SITE. PERMCATH SITE DRESSED WITH BIO PATCH, TEGADERM, AND PRESSURE DRESSING. PT AMBULATED TO BR TO VOID.
--- NOTE | 2024-12-22 13:31 | NUR ---
PATIENT AMBULATING TO RESTROOM WITHOUT DIFFICULTY. PERMACATH DRESSING IN PLACE. NO EVIDENCE OF BLEEDING. VSS ON RA. PATIENT TOLERATING PO INTAKE WELL.
--- NOTE | 2024-12-22 13:49 | NUR ---
PATIENT SITTING IN RECLINER. PERMACATH SITE WITH PRESSURE DRESSING IN PLACE. SITE C/D/I SOFT/NONTENDER, NO EVIDENCE OF BLEEDING. VSS ON RA. PIV REMOVED WITHTOUT DIFFICULTY. PATIENT WAITING FOR RIDE FOR TRANSPORT HOME
--- NOTE | 2024-12-22 14:15 | NUR ---
PATIENT WHEELED TO PATIENT ENTRANCE, SPOUSE ABLE TO PROVIDE TRANSPORTATION HOME. ALL PATIENT BELONGINGS AND PAPERWORK LEFT WITH PATIENT. PERMACATH SITE C/D/I SOFT/NONTENDER, NO EVIDENCE OF BLEEDING.
== END 2024-12-22 14:15 | disposition home or self-care (01) ==
LOC: MHTC 07:36
DX: T82.41XA Breakdown (mechanical) of vascular dialysis catheter, initial encounter (principal); N18.6 End stage renal disease; Z79.84 Long term (current) use of oral hypoglycemic drugs; Z79.890 Hormone replacement therapy; Z79.899 Other long term (current) drug therapy; Z88.8 Allergy status to other drugs, medicaments and biological substances; Z91.013 Allergy to seafood; Z91.030 Bee allergy status; Z99.2 Dependence on renal dialysis; Y81.3 Surgical instruments, materials and general- and plastic-surgery devices (including sutures) associated with adverse incidents
CPT/HCPCS: 36581; 37248; 75827; 99152; 99153; C1725; C1750; C1769; J1644; J2250; J3010; J7040; J7050; Q9967

== ENCOUNTER → 2024-12-23 | Outpatient (CLI) | payer MEDICARE, OTHER ==
[2024-12-23 08:20] LABS: Albumin, Blood 4.1 g/dL (3.4-5.0); Anion Gap 13 mmol/L (3-11); Blood Urea Nitrogen 63 mg/dL (8-24); Bun/Creatinine Ratio 35.2 (12.0-20.0); CO2, Blood 12 mmol/L (21-32); Calcium, Blood 9.5 mg/dL (8.5-10.1); Chloride, Blood 114 mmol/L (98-108); Creatinine, Blood 1.79 mg/dL (0.40-1.00); Glomerular Filtration Rate 34 (60-); Glucose, Blood 139 mg/dL (70-99); Phosphorus, Blood 4.1 mg/dL (2.5-4.9); Potassium, Blood 4.2 mmol/L (3.5-5.5); Sodium, Blood 135 mmol/L (136-145)
== END ==
LOC: LAB SHORT 07:56 → LAB 07:56
PROVIDERS: Internal Medicine Nephrology
DX: N18.6 End stage renal disease (principal)
CPT/HCPCS: 80069

== ENCOUNTER 2025-01-03 14:27 | Inpatient (IN) | payer MEDICARE, OTHER ==
[~2025-01-03] VITALS: Ht 160 cm; Wt 74.8 kg
[2025-01-03] MEDS ORDERED: Potassium Chloride 40 MEQ in NS 250 ML IV ONE (14:40)
[2025-01-03] MEDS ORDERED: Ondansetron HCl 2 MG / ML 2ML Vial IV ONE (15:10)
[2025-01-03 15:43] LABS: Albumin, Blood 4.6 g/dL (3.4-5.0); Albumin/Globulin Ratio 1.2 (0.8-1.8); Bilirubin, Total 0.4 mg/dL (0.1-1.0); Bun/Creatinine Ratio 18.4 (12.0-20.0); Calcium, Blood 9.5 mg/dL (8.5-10.1); Creatinine, Blood 3.15 mg/dL (0.40-1.00); Globulin, Blood 3.7 g/dL (2.2-4.0); Total Protein, Blood 8.3 g/dL (6.4-8.2)
[2025-01-03 15:59] LABS: Influenza A, PCR NEGATIVE (NEGATIVE); Influenza B, PCR NEGATIVE (NEGATIVE); Resp Syncytial Virus, PCR NEGATIVE (NEGATIVE); SARS-Cov-2 (COVID-19) PCR, MMC NEGATIVE (NEGATIVE)
[2025-01-03] MEDS ORDERED: Ondansetron HCl 2 MG / ML 2ML Vial IV PRN (16:10)
[2025-01-03 16:31] LABS: Source, Urine Clean Catch
[2025-01-03 16:41] LABS: Appearance, Urine Cloudy (Clear); Bilirubin, Urine Neg (Neg); Blood, Urine 1+ (Neg); Glucose Qualitative, Urine Neg (Neg); Ketones, Urine Neg (Neg); Leukocyte Esterase, Urine 2+ (Neg); Nitrite, Urine Neg (Neg); Protein, Urine 1+ (Neg); Specific Gravity, Urine 1.015 (1.003-1.022); Urobilinogen, Urine NORM (Normal)
[2025-01-03 16:48] LABS: Color, Urine Pale Yellow (P-Yellow)
[2025-01-03 16:49] LABS: Bacteria Many /hpf; Squamous Epithelial Cells Few /hpf (Few); Transitional Epithelial Cells Rare /hpf (0-Rare); White Blood Cells, Urine 25-50 /hpf (0-5)
[2025-01-03 17:31] VITALS: BP 106/70
[2025-01-03] MEDS ORDERED: NS 1,000 ML IV SCH (17:55)
[2025-01-03] MEDS ORDERED: Insulin Regular 100 UNIT/ML 10ML Vial SC SCH (18:22)
--- NOTE | 2025-01-03 18:36 | NUR ---
SHIFT SUMMARY/TRANSFER PT AOX4, COOPERATIVE, ABLE TO MAKE NEEDS KNONW. SBA TO BED. 2 RN SKIN CHECK COMPLETED BY TONG LOCKHART AND THIS RN. PT IS ADMITTED FOR HYPOKALEMIA FROM COLITIS AND VOMITING, MADE NPO WITH Q6 CBG CHECKS. RUNNING POTASSIUM 63ML/HR CONNCURENT NS 70ML/HR. K LEVEL IS 2.0. RUNNING TELE NORMAL SR. COMMODE IS BEDSIDE FOR URGENCY. BED IN LOWEST POSITION, CALL LIGHT WITHIN REACH.
[2025-01-03 20:28] VITALS: BP 97/62
[2025-01-03] MEDS ORDERED: Heparin Sodium,Porcine 5,000 UNIT/0.5 ML SDV SC SCH (21:00)
[2025-01-03] MEDS ORDERED: Potassium Chl 20MEQ/Water100ML 100 ML IV SCH (22:00)
[2025-01-04] VITALS (7 sets, daily range): BP systolic 93–107; BP diastolic 61–68
[2025-01-04 04:57] LABS: BASOPHILS ABSOLUTE AUTO 0.04 K/mm3 (0.00-0.23); BASOPHILS PERCENT AUTO 0 % (0-2); EOSINOPHILS ABSOLUTE AUTO 0.34 K/mm3 (0.00-0.68); EOSINOPHILS PERCENT AUTO 3 % (0-6); Hematocrit 31.6 % (33.0-51.0); Hemoglobin 10.5 g/dL (11.5-16.0); IMMATURE GRAN ABSOLUTE AUTO 0.08 K/mm3 (0.00-0.10); IMMATURE GRAN PERCENT AUTO 1 % (0-1); LYMPHOCYTES ABSOLUTE AUTO 2.59 K/mm3 (0.84-5.20); LYMPHOCYTES PERCENT AUTO 25 % (21-46); MONOCYTES ABSOLUTE AUTO 0.59 K/mm3 (0.16-1.47); MONOCYTES PERCENT AUTO 6 % (4-13); Mean Corpuscular HGB 28.5 pg (26.0-34.0); Mean Corpuscular HGB Conc 33.2 g/dL (31.5-36.5); Mean Corpuscular Volume 86 fL (80-100); Mean Platelet Volume 10.1 fL (9.1-12.4); NEUTROPHILS ABSOLUTE AUTO 6.86 K/mm3 (1.96-9.15); NEUTROPHILS PERCENT AUTO 65 % (41-73); NRBC ABSOLUTE 0.03 K/mm3 (0.00-0.02); NRBC Auto 0.3 /100 WBC (0.0-0.2); Platelet Count 355 K/mm3 (150-400); RDW Coefficient Variation 18.5 % (11.7-14.2); RDW Standard Deviation 56.3 fL (35.1-46.3); Red Blood Cell Count 3.68 M/mm3 (3.80-5.20)
[2025-01-04 05:34] LABS: Anion Gap 14 mmol/L (3-11); Blood Urea Nitrogen 56 mg/dL (8-24); Bun/Creatinine Ratio 20.1 (12.0-20.0); CO2, Blood 16 mmol/L (21-32); Calcium, Blood 9.3 mg/dL (8.5-10.1); Chloride, Blood 111 mmol/L (98-108); Creatinine, Blood 2.79 mg/dL (0.40-1.00); Glomerular Filtration Rate 20 (60-); Glucose, Blood 113 mg/dL (70-99); Phosphorus, Blood 3.3 mg/dL (2.5-4.9); Potassium, Blood 2.3 mmol/L (3.5-5.5); Sodium, Blood 139 mmol/L (136-145)
[2025-01-04] MEDS ORDERED: Potassium Chloride 60 MEQ IV SCH (05:45)
[2025-01-04] MEDS ORDERED: Potassium Chl 20MEQ/Water100ML 100 ML IV SCH (05:55)
[2025-01-04 12:56] LABS: Magnesium, Blood 1.9 mg/dL (1.6-2.4); Potassium, Blood 2.6 mmol/L (3.5-5.5)
[2025-01-04] MEDS ORDERED: Potassium Chloride 40 MEQ in NS 250 ML IV ONE ×2 (13:30→22:25)
--- NOTE | 2025-01-04 17:22 | NUR ---
NOTE PT ALERT AND COMFORTABLE TODAY. NO N/V. LOOSE STOOL MIXED WITH URINE. PT HAS TOLERATED KRIDERS WELL. NO C/O OF PAIN OR BURNING. SHE IS HUNGRY. ORDER TO ADVANCE DIET RECEVIED. PT HAS TOLERATED FULL LIQUID AT LUNCH ADVANCED TO RENAL REGULAR DIET FOR DINNER. DENIED PAIN OR DISCOMFORT TODAY. CARE ONGOING.
[2025-01-04] MEDS ORDERED: Spironolactone 25 MG Tab PO SCH (18:00)
[2025-01-04] MEDS ORDERED: Sodium Bicarbonate 650 MG Tab PO SCH (21:00)
[2025-01-04] MEDS ORDERED: Potassium Chloride 20 MEQ TabCR PO ONE (22:25)
[2025-01-05] MEDS ORDERED: Loperamide HCl 2 MG Cap PO ONE (00:50)
[2025-01-05 03:27] VITALS: BP 102/62
[2025-01-05 05:10] LABS: Hematocrit 30.1 % (33.0-51.0); Hemoglobin 9.8 g/dL (11.5-16.0)
[2025-01-05 05:26] LABS: Albumin, Blood 3.7 g/dL (3.4-5.0); Anion Gap 12 mmol/L (3-11); Blood Urea Nitrogen 43 mg/dL (8-24); Bun/Creatinine Ratio 20.2 (12.0-20.0); CO2, Blood 14 mmol/L (21-32); Calcium, Blood 9.6 mg/dL (8.5-10.1); Chloride, Blood 117 mmol/L (98-108); Creatinine, Blood 2.13 mg/dL (0.40-1.00); Glomerular Filtration Rate 27 (60-); Glucose, Blood 127 mg/dL (70-99); Magnesium, Blood 1.7 mg/dL (1.6-2.4); Phosphorus, Blood 1.3 mg/dL (2.5-4.9); Potassium, Blood 3.1 mmol/L (3.5-5.5); Sodium, Blood 140 mmol/L (136-145)
[2025-01-05] MEDS ORDERED: Potassium Chloride 40 MEQ in NS 250 ML IV ONE ×2 (05:50→18:00)
[2025-01-05] MEDS ORDERED: Insulin Regular 100 UNIT/ML 10ML Vial SC SCH (07:30)
[2025-01-05 07:34] VITALS: BP 109/68
--- NOTE | 2025-01-05 09:00 | NUR ---
Pt laying in bed awake a/ox4, pleasant and cooperative with care, follows commands well, denies pain at this time, lungs are clear in upper pina, dim in bases, resp even and unlabored, no cough noted, on r/a, states she stopped smoking a few months ago, hrr, slight murmur noted, no edema noted, ppp+1, cap refill<3 sec, vs stable, afebrile, piv to left and right ac, sites are clear and patent, btx4, hyperactive, abd flat soft notnender, voids without diff, skin c/w/d/, maew, gets herself up indep to bsc, tomi, call light in reach.
[2025-01-05] MEDS ORDERED: Potassium Phosphate Dibasic 20 MM in Dextrose 5% 500 ML IV SCH (10:00)
[2025-01-05 12:10] VITALS: BP 108/58
--- NOTE | 2025-01-05 12:43 | NUR ---
pt resting in bed, eating lunch, no needs at this time, states she's doing ok. asked Dr. Mireles for probiotic for her. call light in reach.
[2025-01-05] MEDS ORDERED: Potassium Chloride 20 MEQ TabCR PO ONE ×2 (13:55→15:30)
--- NOTE | 2025-01-05 14:06 | NUR ---
CALLED DR LIRA WITH LAB K+, 2.9 ADVISED ALREADY JSUT STARTED KPHOS IV. NOT DONE UNTIL ABOUT 1800 ORDERS FOR 40 MEQ KCL IV AFTER THIS BAG DONE (ABOUT 1800) 40 MEQ PO KCL NOW. LABS AT 1830, K+, PHOS, MAG. CALL DR LIRA WITH RESULTS. EXPECTING KCL IV TO START 1829, RUN APPROX 4 HRS.
[2025-01-05 15:20] VITALS: BP 105/61
[2025-01-05] MEDS ORDERED: Spironolactone 50 MG Tab PO SCH (18:00)
[2025-01-05 18:34] LABS: Magnesium, Blood 1.7 mg/dL (1.6-2.4); Phosphorus, Blood 2.5 mg/dL (2.5-4.9); Potassium, Blood 3.2 mmol/L (3.5-5.5)
--- NOTE | 2025-01-05 18:55 | NUR ---
PT SHAYY COOP TODAY. STATES HAS CONTINUING DIARRHEA, COLITIS. HAS DEALT WITH FOR 10 YEARS. STATES USES IMMODIUM TO ASSIST IN SLOWING DOWN AND THIS HELPS HER POTASSIUM LEVELS. NO OHTER NEW CONCERNS NOTED. BED IN LOW POSITION, CALL LITE IN REACH, CALLS APPROP
--- NOTE | 2025-01-05 18:58 | NUR ---
[address] LIRA WITH LABS. STATES DO GIVE KCL IV ORDERED. AM LABS ORDERED
[2025-01-05 19:33] VITALS: BP 106/65
[2025-01-05 23:58] LABS: C DIFFICILE DNA POSITIVE (Negative)
[2025-01-06 00:30] VITALS: BP 108/59
[2025-01-06] MEDS ORDERED: Vancomycin HCl 125 MG Cap PO SCH (01:00)
[2025-01-06 04:37] VITALS: BP 115/67
[2025-01-06 05:20] LABS: Hematocrit 30.5 % (33.0-51.0); Hemoglobin 9.5 g/dL (11.5-16.0)
[2025-01-06 05:40] LABS: Albumin, Blood 3.4 g/dL (3.4-5.0); Anion Gap 12 mmol/L (3-11); Blood Urea Nitrogen 32 mg/dL (8-24); Bun/Creatinine Ratio 18.8 (12.0-20.0); CO2, Blood 14 mmol/L (21-32); Calcium, Blood 10.1 mg/dL (8.5-10.1); Chloride, Blood 120 mmol/L (98-108); Glomerular Filtration Rate 36 (60-); Glucose, Blood 121 mg/dL (70-99); Magnesium, Blood 1.7 mg/dL (1.6-2.4); Phosphorus, Blood 2.1 mg/dL (2.5-4.9); Potassium, Blood 3.5 mmol/L (3.5-5.5); Sodium, Blood 142 mmol/L (136-145)
[2025-01-06] MEDS ORDERED: Potassium Phosphate Dibasic 20 MM in Dextrose 5% 500 ML IV ONE (06:30)
[2025-01-06 08:01] VITALS: BP 119/64
[2025-01-06] MEDS ORDERED: Sodium Bicarbonate 650 MG Tab PO SCH (09:00)
[2025-01-06] MEDS ORDERED: Spironolactone 50 MG Tab PO SCH (09:00)
[2025-01-06] MEDS ORDERED: SPIR50 PO (14:45)
--- NOTE | 2025-01-06 15:29 | NUR ---
pt was discharged per md orders. pt had mo questions or concerns. pivs removed and d/c packet in hand
== END 2025-01-06 15:15 | disposition home or self-care (01) | DRG 641 ==
LOC: ER 14:27 → MEDS 14:28
PROVIDERS: Internal Medicine Nephrology; Student in an Organized Health Care Education/Training Program; ADMIT Family Medicine
DX: E87.6 Hypokalemia (principal); N18.5 Chronic kidney disease, stage 5; I12.0 Hypertensive chronic kidney disease with stage 5 chronic kidney disease or end stage renal disease; N17.9 Acute kidney failure, unspecified; N25.81 Secondary hyperparathyroidism of renal origin; N39.0 Urinary tract infection, site not specified; K52.831 Collagenous colitis; J44.9 Chronic obstructive pulmonary disease, unspecified; E11.22 Type 2 diabetes mellitus with diabetic chronic kidney disease; D72.829 Elevated white blood cell count, unspecified; E89.0 Postprocedural hypothyroidism; E86.9 Volume depletion, unspecified; E87.20 Acidosis, unspecified; D63.1 Anemia in chronic kidney disease; E83.39 Other disorders of phosphorus metabolism; Z87.891 Personal history of nicotine dependence; Z88.8 Allergy status to other drugs, medicaments and biological substances; Z79.51 Long term (current) use of inhaled steroids; Z79.84 Long term (current) use of oral hypoglycemic drugs; Z79.890 Hormone replacement therapy; Z85.841 Personal history of malignant neoplasm of brain; Z85.528 Personal history of other malignant neoplasm of kidney; R76.9 Abnormal immunological finding in serum, unspecified; R94.5 Abnormal results of liver function studies; R94.6 Abnormal results of thyroid function studies; N28.89 Other specified disorders of kidney and ureter; D51.8 Other vitamin B12 deficiency anemias; D52.8 Other folate deficiency anemias; D50.9 Iron deficiency anemia, unspecified
CPT/HCPCS: 0241U; 36415; 80053; 80069; 81001; 82248; 82306; 82607; 82728; 82746; 82947; 83540; 83550; 83735; 83970; 84100; 84132; 84443; 84550; 85014; 85018; 85025; 85610; 86039; 86160; 86225; 86235; 87077; 87086; 87186; 87324; 87493; 93005; 93010; 96365; 96366; 96372; 96375; 96376; 99284-25; A9270; G0378; J1644; J2405; J3480; J7030; J7050; J7060

== ENCOUNTER → 2025-02-04 | Outpatient (CLI) | payer MEDICARE ==
[~2025-02-04] MED LIST changes: +SPIR50 PO
[2025-02-04 08:53] LABS: Albumin, Blood 4.5 g/dL (3.4-5.0); Anion Gap 14 mmol/L (3-11); Blood Urea Nitrogen 92 mg/dL (8-24); CO2, Blood 20 mmol/L (21-32); Calcium, Blood 9.5 mg/dL (8.5-10.1); Chloride, Blood 100 mmol/L (98-108); Creatinine, Blood 4.83 mg/dL (0.40-1.00); Glomerular Filtration Rate 10 (60-); Glucose, Blood 94 mg/dL (70-99); Phosphorus, Blood 4.4 mg/dL (2.5-4.9); Potassium, Blood 3.1 mmol/L (3.5-5.5); Sodium, Blood 131 mmol/L (136-145)
== END ==
LOC: LAB SHORT 08:19 → LAB 08:19
PROVIDERS: Internal Medicine Nephrology
DX: N18.4 Chronic kidney disease, stage 4 (severe) (principal)
CPT/HCPCS: 80069

== ENCOUNTER 2025-04-07 07:42 | Inpatient (IN) | payer MEDICARE ==
[2025-04-07] VITALS (17 sets, daily range): BP systolic 68–106; BP diastolic 29–73
[~2025-04-07] VITALS: Ht 157.5 cm; Wt 74.1 kg
[~2025-04-07 07:42] MED LIST changes: +EUTHYROX125 MCG PO; -LEVSOD75 PO; -POTA10T PO; +POTCHL20ER PO; -PRAM.125 PO; +PRAMIPEXOLE DI0.5 M1 PO
[2025-04-07] MEDS ORDERED: NS 1,000 ML IV SCH (07:50)
[2025-04-07 08:25] LABS: BASOPHILS ABSOLUTE AUTO 0.04 K/mm3 (0.00-0.23); BASOPHILS PERCENT AUTO 0 % (0-2); EOSINOPHILS ABSOLUTE AUTO 0.04 K/mm3 (0.00-0.68); EOSINOPHILS PERCENT AUTO 0 % (0-6); Hematocrit 33.8 % (33.0-51.0); Hemoglobin 10.7 g/dL (11.5-16.0); IMMATURE GRAN ABSOLUTE AUTO 0.14 K/mm3 (0.00-0.10); IMMATURE GRAN PERCENT AUTO 1 % (0-1); LYMPHOCYTES ABSOLUTE AUTO 1.28 K/mm3 (0.84-5.20); LYMPHOCYTES PERCENT AUTO 6 % (21-46); MONOCYTES ABSOLUTE AUTO 1.58 K/mm3 (0.16-1.47); MONOCYTES PERCENT AUTO 7 % (4-13); Mean Corpuscular HGB Conc 31.7 g/dL (31.5-36.5); Mean Corpuscular Volume 91 fL (80-100); NEUTROPHILS ABSOLUTE AUTO 19.24 K/mm3 (1.96-9.15); NEUTROPHILS PERCENT AUTO 86 % (41-73); NRBC ABSOLUTE 0.00 K/mm3 (0.00-0.02); NRBC Auto 0.0 /100 WBC (0.0-0.2); Platelet Count 257 K/mm3 (150-400); RDW Coefficient Variation 17.7 % (11.7-14.2); RDW Standard Deviation 58.8 fL (35.1-46.3)
[2025-04-07 08:48] LABS: Alanine Aminotransfer (ALT/SGP 20.0 U/L (12-78); Albumin, Blood 3.7 g/dL (3.4-5.0); Albumin/Globulin Ratio 1.1 (0.8-1.8); Anion Gap 23.0 mmol/L (3-11); Aspartate Aminotrans (AST/SGOT 10.0 U/L (12-37); Bilirubin, Total 0.4 mg/dL (0.1-1.0); Blood Urea Nitrogen 143.0 mg/dL (8-24); CO2, Blood 8.0 mmol/L (21-32); Calcium, Blood 9.0 mg/dL (8.5-10.1); Chloride, Blood 101.0 mmol/L (98-108); Creatinine, Blood 12.8 mg/dL (0.40-1.00); Globulin, Blood 3.4 g/dL (2.2-4.0); Glucose, Blood 101.0 mg/dL (70-99); Potassium, Blood 4.0 mmol/L (3.5-5.5); Sodium, Blood 128.0 mmol/L (136-145); Total Protein, Blood 7.1 g/dL (6.4-8.2)
[2025-04-07] MEDS ORDERED: CefTRIAXone Sodium 1,000 MG in NS 100 ML IV ONE (08:50)
[2025-04-07] MEDS ORDERED: Sodium Bicarb 8.4% 1 MEQ/ML 50 ML Vial IV ONE ×3 (09:05→23:00)
[2025-04-07] MEDS ORDERED: Sodium Bicarb 8.4% Inj 150 MEQ in Dextrose 5% 1,000 ML IV SCH ×4 (09:10→21:50)
[2025-04-07 09:24] LABS: pH Blood Venous 7.02 (7.34-7.37)
[2025-04-07 11:03] LABS: Source, Urine Clean Catch
[2025-04-07 11:18] LABS: Bilirubin, Urine Neg (Neg); Color, Urine Yellow (P-Yellow); Glucose Qualitative, Urine Neg (Neg); Ketones, Urine Neg (Neg); Leukocyte Esterase, Urine 3+ (Neg); Protein, Urine 4+ (Neg); Specific Gravity, Urine 1.015 (1.003-1.022); Urobilinogen, Urine NORM (Normal)
[2025-04-07 11:30] LABS: pH Blood Venous 7.08 (7.34-7.37)
[2025-04-07 11:44] LABS: White Blood Cells, Urine TNTC /hpf (0-5)
[2025-04-07] MEDS ORDERED: NS 500 ML IV ONE ×3 (12:45→23:00)
[2025-04-07 12:51] LABS: Magnesium, Blood 2.2 mg/dL (1.6-2.4); Phosphorus, Blood 7.7 mg/dL (2.5-4.9)
[2025-04-07 12:53] LABS: Thyroid Stimulating Hormone 0.61 uIU/mL (0.360-4.800)
[2025-04-07] MEDS ORDERED: Darbepoetin (Pharmacy Consult) SC SCH (13:00)
--- NOTE | 2025-04-07 13:11 | NUR ---
ADMIT NOTE PT ARRIVED FROM ED TO PCU VIA ED STRETCHER AT APPROX 1130. PT WAS SLID BY 4 STAFF FROM ED STRETCHER TO PCU BED. PT LETHARGIC BUT ABLE TO ANSWER QUESTIONS. FALLS ASLEEP DURING INTAKE QUESTIONS. SP02>90% ON RA BUT DIFFICULT TO FIND PLEATH. TELEMTRY NSR, HR 80'S. BP SOFT. RED COCCYX W/ SLIGHT BLOOD FROM RECTUM NOTED, SEE PICTURE IN CHART. PT STATES HX OF HEMMOROIDS. C/O OF HIP/BACK PAIN, FLOATED ON PILLOWS. BICARB D5% GTT INFUSING PER EMAR. ORIENTED TO CALL LIGHT, BED ALARM ON. MD ILRA IN ROOM TO ASSESS W/ ORDERS FOR FUTURE LABS. SHORTLY AFTER MD LIRA LEFT ROOM, PT VITALS REASSESSED. BP 68/29. MD LIRA NOTIFIED. MD LIRA W/ ORDERS TO BOLUS 250 MLS OF BICARB GTT, THEN 500 ML BOLUS NS, AND TID MIDODRINE. BICARB BOLUS COMPLETE, NS BOLUS CURRENTLY INFUSING, MIDODRINE GIVEN. BP RESPONDED TO FLUIDS, CURRENTLY 91/73 (81).
[2025-04-07 13:26] LABS: Anion Gap 22.0 mmol/L (3-11); Blood Urea Nitrogen 142.0 mg/dL (8-24); CO2, Blood 11.0 mmol/L (21-32); Calcium, Blood 8.5 mg/dL (8.5-10.1); Chloride, Blood 100.0 mmol/L (98-108); Glucose, Blood 118.0 mg/dL (70-99); Potassium, Blood 3.5 mmol/L (3.5-5.5); Sodium, Blood 129.0 mmol/L (136-145)
[2025-04-07 13:27] LABS: Creatinine, Blood 12.8 mg/dL (0.40-1.00)
[2025-04-07] MEDS ORDERED: Heparin Sodium,Porcine 5,000 UNIT/0.5 ML SDV SC SCH (14:00)
[2025-04-07] MEDS ORDERED: Sodium Bicarb 8.4% Inj 75 MEQ in Sodium Chloride 0.45% 1,000 ML IV SCH (18:00)
--- NOTE | 2025-04-07 18:27 | NUR ---
SHIFT SUMMARY PT ORIENTED, LETHARGIC. SP02>90% ON RA. TELEMETRY SHOWS NSR, HR 80'S. BP REMAINS SOFT, SEE VITALS. MIDDRINE GIVEN PER EMAR. BICARB GTT INFUSING PER EMAR. US RENAL DONE, SEE RESULTS. BLADDER SCAN DONE 55MLS. REPOSITIONED Q2H. CALL LIGHT IN REACH, BED ALARM ON.
[2025-04-07 19:30] LABS: Albumin, Blood 3.2 g/dL (3.4-5.0); Anion Gap 19 mmol/L (3-11); Blood Urea Nitrogen 143 mg/dL (8-24); CO2, Blood 13 mmol/L (21-32); Calcium, Blood 8.3 mg/dL (8.5-10.1); Chloride, Blood 100 mmol/L (98-108); Creatinine, Blood 13.00 mg/dL (0.40-1.00); Glucose, Blood 97 mg/dL (70-99); Phosphorus, Blood 7.1 mg/dL (2.5-4.9); Potassium, Blood 3.0 mmol/L (3.5-5.5); Sodium, Blood 129 mmol/L (136-145)
[2025-04-07] MEDS ORDERED: Potassium Chl 20MEQ/Water100ML 100 ML IV ONE (19:40)
--- NOTE | 2025-04-07 19:40 | NUR ---
UPDATE CALL PLACED TO MD LIRA WITH UPDATED LAB VALUES. MD LIRA WITH ORDERS TO DECREASE BICARB GTT FROM 150 MLS/HR TO 100 MLS/HR. POTASSIUM GTT 20 MEQ REPLACEMENT FOR K+ 3.0. AFTER POTASSIUM INFUSION, THEN 1 AMP BICARB PUSH. FOLLOWED BY 500 NS BOLUS. REPORT GIVEN TO NOC SHIFT RN.
[2025-04-08] MEDS ORDERED: Sodium Bicarb 8.4% Inj 100 MEQ in Dextrose 5% 1,000 ML IV SCH (01:40)
[2025-04-08 03:51] LABS: BASOPHILS ABSOLUTE AUTO 0.01 K/mm3 (0.00-0.23); BASOPHILS PERCENT AUTO 0 % (0-2); EOSINOPHILS ABSOLUTE AUTO 0.03 K/mm3 (0.00-0.68); EOSINOPHILS PERCENT AUTO 0 % (0-6); Hematocrit 24.3 % (33.0-51.0); Hemoglobin 8.1 g/dL (11.5-16.0); IMMATURE GRAN ABSOLUTE AUTO 0.04 K/mm3 (0.00-0.10); IMMATURE GRAN PERCENT AUTO 0 % (0-1); LYMPHOCYTES ABSOLUTE AUTO 1.35 K/mm3 (0.84-5.20); LYMPHOCYTES PERCENT AUTO 12 % (21-46); MONOCYTES ABSOLUTE AUTO 1.06 K/mm3 (0.16-1.47); MONOCYTES PERCENT AUTO 9 % (4-13); Mean Corpuscular HGB Conc 33.3 g/dL (31.5-36.5); Mean Corpuscular Volume 87 fL (80-100); NEUTROPHILS ABSOLUTE AUTO 9.23 K/mm3 (1.96-9.15); NEUTROPHILS PERCENT AUTO 79 % (41-73); NRBC ABSOLUTE 0.00 K/mm3 (0.00-0.02); NRBC Auto 0.0 /100 WBC (0.0-0.2); Platelet Count 217 K/mm3 (150-400); RDW Coefficient Variation 17.4 % (11.7-14.2); RDW Standard Deviation 55.4 fL (35.1-46.3)
[2025-04-08 04:15] LABS: Magnesium, Blood 1.7 mg/dL (1.6-2.4)
[2025-04-08 04:20] LABS: Alanine Aminotransfer (ALT/SGP 15.0 U/L (12-78); Albumin, Blood 2.9 g/dL (3.4-5.0); Albumin/Globulin Ratio 1.0 (0.8-1.8); Anion Gap 17.0 mmol/L (3-11); Aspartate Aminotrans (AST/SGOT 9.0 U/L (12-37); Bilirubin, Total 0.3 mg/dL (0.1-1.0); Blood Urea Nitrogen 142.0 mg/dL (8-24); CO2, Blood 19.0 mmol/L (21-32); Calcium, Blood 7.9 mg/dL (8.5-10.1); Chloride, Blood 98.0 mmol/L (98-108); Creatinine, Blood 12.3 mg/dL (0.40-1.00); Globulin, Blood 2.8 g/dL (2.2-4.0); Glucose, Blood 110.0 mg/dL (70-99); Phosphorus, Blood 5.9 mg/dL (2.5-4.9); Potassium, Blood 2.7 mmol/L (3.5-5.5); Sodium, Blood 131.0 mmol/L (136-145); Total Protein, Blood 5.7 g/dL (6.4-8.2)
[2025-04-08 04:25] VITALS: BP 96/50
--- NOTE | 2025-04-08 04:37 | NUR ---
NOTIFICATION OF CRITICAL VALUE NIGHT MD DR CARVER CALLED FOR CRITICAL CREATININE OF 12.3. NO CHANGE TO ORDERS AT THIS TIME. KEEP FLUIDS AT PRESCRIBED RATE AND MD WANTS RN TO PAGE MD DR LIRA AT 0630 WITH AM LAB VALUES.
--- NOTE | 2025-04-08 06:19 | NUR ---
END OF SHIFT RN NOTE PT VERY LETHARGIC FOR SHIFT TILL AFTER MIDNIGHT. PT AROUSABLE TO VOICE AND WOULD START TO ANSWER QUESTIONS BUT FALL ASLEEP. AFTER MIDNIGHT, PT ALERT AND ORIENTED TIMES 4, STANDBY ASSIST TO VOID URINE AT BEDSIDE COMMODE. PT RECEIVED BICARB FLUIDS AT 100 CC OVERNIGHT. PT FIRST [id number] 20 MEQ K, FOLLOWED BY AN AMP OF BICARB, FOLLOWED BY 500 CC [id number] NS. AM LABS RESULTED AND DR CARVER NOTIFIED AND ALSO CALLED DR LIRA. NEW ORDERS FOR RATE CHANGE OF IVF W BICARB TO 50, 40 MEQ K, CHANGE DIET TO CARB CONSISTENT, TYLENOL TIMES ONE FOR HEADACHE AND MARLIN RENAL PANEL AT 1200 W RESULTS TO BE CALLED TO HIM AT 1300. PT BPS SOFT OVERNIGHT WITH MAPS RANGING FROM 60-65. PT VOIDED 500 CC URINE OVERNIGHT. PT SATS GREATER THAN 90% ON ROOM AIR AND NRS ON MONITOR.
--- NOTE | 2025-04-08 06:30 | NUR ---
END OF SHIFT RN NOTE PT VSS OVERNIGHT. PT SELF TURNED IN BED AND VERY COOPERATIVE IN HER CARE PLAN. PRN PAIN MEDICATION GIVEN Q 5 HOURS W 5 MG PO OXYCODONE FOR PAIN TO BACK. PLAN FOR DC TODAY LIKELY TO [facility].
[2025-04-08] MEDS ORDERED: VITAMIN D5000 UNIT PO (08:17)
[2025-04-08 08:18] VITALS: BP 113/96
[2025-04-08] MEDS ORDERED: CefTRIAXone Sodium 1,000 MG in NS 100 ML IV SCH (09:00)
[2025-04-08 12:24] LABS: Albumin, Blood 3.0 g/dL (3.4-5.0); Anion Gap 17 mmol/L (3-11); Blood Urea Nitrogen 137 mg/dL (8-24); CO2, Blood 21 mmol/L (21-32); Calcium, Blood 8.1 mg/dL (8.5-10.1); Chloride, Blood 96 mmol/L (98-108); Creatinine, Blood 11.70 mg/dL (0.40-1.00); Glucose, Blood 125 mg/dL (70-99); Phosphorus, Blood 5.5 mg/dL (2.5-4.9); Potassium, Blood 2.8 mmol/L (3.5-5.5); Sodium, Blood 131 mmol/L (136-145)
[2025-04-08] MEDS ORDERED: NS 1,000 ML IV SCH (12:55)
[2025-04-08] MEDS ORDERED: Potassium Chloride 10 Meq Tablet SA PO ONE ×2 (12:55→18:30)
[2025-04-08] MEDS ORDERED: Potassium Chl 20MEQ/Water100ML 100 ML IV ONE (12:55)
[2025-04-08 13:34] VITALS: BP 121/61
[2025-04-08] MEDS ORDERED: Darbepoetin Alfa in Polysorbat 25 MCG/0.42 ML Syringe SC ONE (16:00)
[2025-04-08] MEDS ORDERED: Insulin Human Lispro 100 Units/ML 3ML Syringe SC SCH (16:30)
--- NOTE | 2025-04-08 17:59 | NUR ---
SHIFT NOTE: PT ALERT AND ORIENTED AND ABLE TO MAKE HER NEEDS KNOWN. SHE IS IN NSR WITH NO ACUTE EVENTS ON TELE. HER BLOOD PRESSURE HAS REMAINED STABLE. MIDODRINE GIVEN PER EMAR. SHE IS ON RA WITH NO REPORTS OF SOB. SHE HAS AMBULATED WITH 1P ASSIST TO THE BATHROOM AND GOT A SHOWER TODAY. NS RUNNING PER EMAR. CARE CONTINUES.
[2025-04-08 18:15] LABS: Creatinine, Blood 10.8 mg/dL (0.40-1.00); Potassium, Blood 3.3 mmol/L (3.5-5.5)
[2025-04-08 20:43] VITALS: BP 111/56
[2025-04-08 23:56] VITALS: BP 109/58
[2025-04-09 03:36] VITALS: BP 111/56
[2025-04-09 04:35] LABS: Hematocrit 23.7 % (33.0-51.0); Hemoglobin 7.9 g/dL (11.5-16.0)
[2025-04-09 05:07] LABS: Magnesium, Blood 1.5 mg/dL (1.6-2.4)
[2025-04-09 05:19] LABS: Albumin, Blood 2.9 g/dL (3.4-5.0); Anion Gap 14 mmol/L (3-11); Blood Urea Nitrogen 122 mg/dL (8-24); CO2, Blood 19 mmol/L (21-32); Calcium, Blood 8.2 mg/dL (8.5-10.1); Chloride, Blood 103 mmol/L (98-108); Creatinine, Blood 9.17 mg/dL (0.40-1.00); Glucose, Blood 103 mg/dL (70-99); Phosphorus, Blood 4.2 mg/dL (2.5-4.9); Potassium, Blood 3.3 mmol/L (3.5-5.5); Sodium, Blood 133 mmol/L (136-145)
[2025-04-09] MEDS ORDERED: Mag Sulfate 1 GM/D5% 100ML 100 ML IV ONE (05:40)
--- NOTE | 2025-04-09 07:33 | NUR ---
PT ALERT AND ORIENTED WITH FORGEFULLNESS TO DAY AND DATE. VITALS WNL.STAND BY ONE ASSIST WITH WALKER. MD LIRA WAS NOTIFIED D/T CRITICAL LABS THIS MORNING. LABS REPLACED. NO C/O PAIN.NO C/O CHEST PAIN
[2025-04-09 07:43] VITALS: BP 106/62
[2025-04-09] MEDS ORDERED: Ondansetron 4 MG SoluTab MM PRN (08:55)
[2025-04-09 14:41] VITALS: BP 124/69
--- NOTE | 2025-04-09 17:53 | NUR ---
End of shift note. Pt has been resting for much of the day. Some complaints of headache this morning, treated with tylenol with good effect. Pt is A&O, some forgetfulness to time but Pt is aware that she struggles to keep up with the date. Pt has been OOB walking into the bathroom all shift. Good urine output. Pt does have some notable rectal bleeding. Pt reports that bleeding amount is her baseline and that she is being seen by GI for a prolapsed rectum. IVF continue to infuse. Nephrology to manage electrolytes. Next lab draw tomorrow AM. Pt was changed to medical status with no tele. Pt is able to make needs known. Call light is within reach.
[2025-04-09 19:41] VITALS: BP 128/59
--- NOTE | 2025-04-10 04:00 | NUR ---
PT STABLE THROUGHOUT SHIFT. VITAL SIGNS WNL. PT OOB TO BR WITH SBA. PT HAS HAD GOOD URINARY OUTPUT. CHRONIC RECTAL BLEEDING PRESENT, PT CHANGES OWN BRIEF IN BATHROOM. PT REMAINS AOX3-4, UNSURE OF DATE BUT IS REORIENTED EASILY. PT READILY ACCEPTS EDUCATION ON HOME FALL PREVENTION AND DIABETIC FOOT CARE. PT TOLERATING IV FLUIDS WELL. NO COMPLAINTS PER PT DURING SHIFT.
[2025-04-10 04:38] LABS: Hematocrit 25.0 % (33.0-51.0); Hemoglobin 8.3 g/dL (11.5-16.0)
[2025-04-10 04:57] LABS: Albumin, Blood 2.8 g/dL (3.4-5.0); Anion Gap 12 mmol/L (3-11); Blood Urea Nitrogen 119 mg/dL (8-24); CO2, Blood 20 mmol/L (21-32); Calcium, Blood 9.1 mg/dL (8.5-10.1); Chloride, Blood 105 mmol/L (98-108); Creatinine, Blood 6.26 mg/dL (0.40-1.00); Glucose, Blood 112 mg/dL (70-99); Magnesium, Blood 1.8 mg/dL (1.6-2.4); Phosphorus, Blood 4.6 mg/dL (2.5-4.9); Potassium, Blood 3.4 mmol/L (3.5-5.5); Sodium, Blood 134 mmol/L (136-145)
[2025-04-10 05:01] VITALS: BP 108/70
--- NOTE | 2025-04-10 05:05 | NUR ---
nurse note assumed care of this pt at aprox 0415 from YASMIN LOCKHART. pt vitals obtained, snack provided. pt is very kind and cooperative with care. call light in reach.
--- NOTE | 2025-04-10 05:44 | NUR ---
NURSE NOTE PT TXER TO MEDICAL FLOOR ROOM 330.
--- NOTE | 2025-04-10 06:37 | NUR ---
NURSE NOTE ASSUMED CARE OF PT @ 5808. SHE IS SETTLED AND RESTING AT THIS TIME. A&O X 4, INDEPENDANT. BED IN LOW POSITION AND CALL LIGHT IN REACH.
[2025-04-10 07:25] VITALS: BP 100/59
[2025-04-10 11:50] VITALS: BP 95/57
[2025-04-10] MEDS ORDERED: CEFDINIR300 M4 PO (14:52)
[2025-04-10] MEDS ORDERED: NEURONTIN300 MG PO (14:53)
[2025-04-10] MEDS ORDERED: MONT10T PO (14:54)
[2025-04-10] MEDS ORDERED: FUROSEMIDE40 MG PO (14:58)
[2025-04-10] MEDS ORDERED: HYDCHL12.5 PO (15:00)
[2025-04-10 15:47] VITALS: BP 110/67
--- NOTE | 2025-04-10 18:44 | NUR ---
SHIFT SUMMARY: PT A&O X4. PLEASANT AND COOPERATIVE WITH CARE. NO ACUTE CHANGES THIS SHIFT. PT STILL HAVING LOW BP. MIDODRINE PROVIDED PER EMAR. PLANS FOR ONE MORE DAY OF IV FLUIDS THEN ABLE TO D/C TOMORROW. PT HAS PLANS FOR KIDNEY BX 04/18/2025. CALL LIGHT IN REACH. BED IN LOWEST POSITION.
[2025-04-10 23:35] VITALS: BP 102/61
[2025-04-11 04:16] VITALS: BP 104/52
[2025-04-11 05:18] LABS: Hematocrit 25.5 % (33.0-51.0); Hemoglobin 8.2 g/dL (11.5-16.0)
--- NOTE | 2025-04-11 06:05 | NUR ---
SHIFT SUMMARY PT HERE FOR UREMIC ENCEPHALOPATHY. PT HAS BEEN RESTING COMFORTABLY OVERNIGHT. SHE HAS BEEN AOX4, CALM AND COOPERATIVE. SHE CALLS APPROPRIATELY. PT HAS BEEN INDEPENDENT IN RM, CONTINENT X2. PT HAS BEEN ANXIOUS ABOUT BEING D/C'D. SHE HAS HAD NO OTHER COMPLAINTS. NO ACUTE EVENTS OVERNIGHT.
[2025-04-11 07:58] VITALS: BP 118/70
[2025-04-11 11:53] LABS: Albumin, Blood 2.9 g/dL (3.4-5.0); Anion Gap 19 mmol/L (3-11); Blood Urea Nitrogen 99 mg/dL (8-24); CO2, Blood 20 mmol/L (21-32); Calcium, Blood 9.2 mg/dL (8.5-10.1); Chloride, Blood 105 mmol/L (98-108); Creatinine, Blood 4.24 mg/dL (0.40-1.00); Glucose, Blood 105 mg/dL (70-99); Magnesium, Blood 1.3 mg/dL (1.6-2.4); Phosphorus, Blood 5.0 mg/dL (2.5-4.9); Potassium, Blood 3.6 mmol/L (3.5-5.5); Sodium, Blood 140 mmol/L (136-145)
[2025-04-11] MEDS ORDERED: SODBIC650 PO (12:01)
[2025-04-11] MEDS ORDERED: MIDO5 PO (12:01)
[2025-04-11 12:30] VITALS: BP 130/60
--- NOTE | 2025-04-11 14:32 | NUR ---
DISCHARGE NOTE PT DISCHARGED TO HOME, PICKED UP BY HER AND SISTER. IV REMOVED. DISCHARGE EDUCATION AND INFORMATION PROVIDED TO THE PT. MEDICATIONS FAXED TO THE PHARMACY OF HER CHOICE. NOTE TO SEE DR. LIRA TOMORROW AT HIS OFFICE PASSED ALONG TO THE PT. PERSONAL BELONGINGS RETURNED.
== END 2025-04-11 14:17 | disposition home health service (06) | DRG 683 ==
LOC: ER 07:42 → ERHOLD 10:14 → MEDS 10:14 → PCU 10:14 → MEDS 04-10 05:35
PROVIDERS: Emergency Medicine; Internal Medicine Nephrology; ADMIT Hospitalist
DX: N17.9 Acute kidney failure, unspecified (principal); E87.1 Hypo-osmolality and hyponatremia; E87.20 Acidosis, unspecified; G93.49 Other encephalopathy; N30.00 Acute cystitis without hematuria; N18.4 Chronic kidney disease, stage 4 (severe); J44.9 Chronic obstructive pulmonary disease, unspecified; E11.22 Type 2 diabetes mellitus with diabetic chronic kidney disease; I12.9 Hypertensive chronic kidney disease with stage 1 through stage 4 chronic kidney disease, or unspecified chronic kidney disease; N28.89 Other specified disorders of kidney and ureter; E86.0 Dehydration; T50.2X5A Adverse effect of carbonic-anhydrase inhibitors, benzothiadiazides and other diuretics, initial encounter; B96.20 Unspecified Escherichia coli [E. coli] as the cause of diseases classified elsewhere; E87.6 Hypokalemia; E89.0 Postprocedural hypothyroidism; I95.9 Hypotension, unspecified; E83.39 Other disorders of phosphorus metabolism; D63.1 Anemia in chronic kidney disease; R52 Pain, unspecified; E83.42 Hypomagnesemia; Z88.8 Allergy status to other drugs, medicaments and biological substances; Z79.84 Long term (current) use of oral hypoglycemic drugs; Z79.890 Hormone replacement therapy; Z87.891 Personal history of nicotine dependence; Z85.841 Personal history of malignant neoplasm of brain; Z85.528 Personal history of other malignant neoplasm of kidney
CPT/HCPCS: 0202U; 36415; 76770; 80048; 80053; 80069; 81001; 82565; 82803; 82947; 83605; 83735; 84100; 84132; 84439; 84443; 85014; 85018; 85025; 87040; 87077; 87086; 87186; 92610; 93005; 93010; 96365; 96368; 99285-25; A9270; J0696; J0881; J1644; J3475; J3480; J7030; J7040; J7050; J7070

== ENCOUNTER → 2025-07-25 | Outpatient (CLI) | payer OTHER ==
[~2025-07-25] MED LIST changes: +CEFDINIR300 M4 PO; +SODBIC650 PO; +VITAMIN D5000 UNIT PO
[2025-07-25 15:30] LABS: BASOPHILS ABSOLUTE AUTO 0.05 K/mm3 (0.00-0.23); BASOPHILS PERCENT AUTO 1 % (0-2); EOSINOPHILS ABSOLUTE AUTO 0.12 K/mm3 (0.00-0.68); EOSINOPHILS PERCENT AUTO 1 % (0-6); Hematocrit 39.9 % (33.0-51.0); Hemoglobin 12.6 g/dL (11.5-16.0); IMMATURE GRAN ABSOLUTE AUTO 0.02 K/mm3 (0.00-0.10); IMMATURE GRAN PERCENT AUTO 0 % (0-1); LYMPHOCYTES ABSOLUTE AUTO 2.78 K/mm3 (0.84-5.20); LYMPHOCYTES PERCENT AUTO 29 % (21-46); MONOCYTES ABSOLUTE AUTO 0.50 K/mm3 (0.16-1.47); MONOCYTES PERCENT AUTO 5 % (4-13); Mean Corpuscular HGB Conc 31.6 g/dL (31.5-36.5); Mean Corpuscular Volume 91 fL (80-100); NEUTROPHILS ABSOLUTE AUTO 6.20 K/mm3 (1.96-9.15); NEUTROPHILS PERCENT AUTO 64 % (41-73); NRBC ABSOLUTE 0.00 K/mm3 (0.00-0.02); NRBC Auto 0.0 /100 WBC (0.0-0.2); Platelet Count 260 K/mm3 (150-400); RDW Coefficient Variation 16.6 % (11.7-14.2); RDW Standard Deviation 55.8 fL (35.1-46.3)
[2025-07-25 16:11] LABS: Ferritin, Serum 240.0 ng/mL (8-252); Total Iron Binding Capacity 391.0 ug/dL (250-450)
== END | disposition home or self-care (01) ==
LOC: LAB 13:39 → LAB SHORT 13:39
PROVIDERS: Internal Medicine Hematology & Oncology
DX: E61.1 Iron deficiency (principal)
CPT/HCPCS: 82728; 83540; 83550; 85025